=== PATIENT | female | born 1985 | race Caucasian/White ===

== ENCOUNTER 2021-08-28 11:11 | Emergency (ER) | payer OTHER, SELFPAY ==
--- NOTE | 2021-08-28 11:16 | ED.BACK ---
HPI - Back Pain/Injury General Chief Complaint: Back Pain/Injury Stated Complaint: Low Back Pain Time Seen by Provider: 08/28/21 11:16 Source: patient, family and RN notes reviewed History of Present Illness HPI Narrative: Patient is a 36-year-old female who presents the urgent care with her significant other with complaints of left-sided low back pain that radiates to the left buttocks. Patient states she does have a history of sciatica and this feels very similar. Patient states that she did call her doctor and has a follow-up appointment on Wednesday for the pain. Patient also reports of some decreased urinary output and frequency of urination. Patient states she has a history of kidney stones and this does not feel similar to that pain . Patient states she has a 2-year-old that she picks up consistently and believes that she may have pulled something in her back . Patient denies any dysuria, abdominal pain, nausea, vomiting, fever. States that she has been taking cranberry and using ibuprofen/ice and icy hot for the pain. No other acute complaints. No acute distress noted. Patient aware of the plan of care. Some parts of this dictation were generated by voice recognition software and may contain typographical and/or grammatical inaccuracies. Related Data Allergies Allergy/AdvReac Type Severity Reaction Status Date / Time No Known Allergies Allergy Verified 08/28/21 11:30 Review of Systems Review of Systems: CONSTITUTIONAL: Denies fever, chills, or sweats. EYES: Denies visual changes, redness, or discharge. ENT: Denies rhinorrhea, congestion, sore throat, or otalgia. CARDIOVASCULAR: Denies chest pain, palpitations, or edema. RESPIRATORY: Denies cough or dyspnea. GASTROINTESTINAL: Denies abdominal pain, nausea, vomiting, or diarrhea. GENITOURINARY: Reports of decreased urinary output and increased frequency SKIN: Denies rash or itching. MUSCULOSKELETAL: Reports of left low back/flank pain rating to the left buttocks NEUROLOGIC: Denies headache, numbness, or weakness. All other systems reviewed are negative, except as documented in HPI. PMFSH Comments At the time of my signature, I reviewed and agree with the nursing past medical, surgical, social, and family history. There is no relevant family history pertinent to the patient complaint. Exam Narrative: GENERAL: This is a well-nourished, well-developed patient, in no apparent distress. HEAD: normocephalic, atraumatic. EYES: PERRL. Sclera clear/white. Vision is grossly intact. EARS: External ears normal NOSE: External nose normal with no obvious nasal discharge, nares without redness, no rhinorrhea. THROAT: Mucous membranes moist NECK: Neck supple CARDIOVASCULAR: Regular rate and rhythm without murmurs, gallops, or rubs. RESPIRATORY: Clear to auscultation. Breath sounds equal bilaterally. No wheezes, rales, or rhonchi. SKIN: warm, intact with no suspicious lesions or rash, good texture and turgor. NEURO: awake, alert, and oriented to person, place and time. There were no obvious focal neurologic abnormalities. EXTREMITIES: No clubbing, cyanosis, or edema. BACK: Moderate left piriformis tenderness. Positive left SLE. Negative bilateral CVA tenderness Course Vital Signs Vital signs: Vital Signs Temperature 99.9 F H 08/28/21 11:33 Pulse Rate 108 H 08/28/21 11:33 Respiratory Rate 20 08/28/21 11:33 Blood Pressure 147/73 H 08/28/21 11:33 Pulse Oximetry 100 08/28/21 11:33 Temperature 99.9 F H 08/28/21 11:33 Pulse Rate 108 H 08/28/21 11:33 Respiratory Rate 20 08/28/21 11:33 Blood Pressure 147/73 H 08/28/21 11:33 Pulse Oximetry 100 08/28/21 11:33 Reviewed-patient is informed that they may have pre-hypertension or hypertension based on a blood pressure reading in the department. I recommend the patient call the primary care provider listed on their discharge instructions or a physician of their choice this week to arrange follow-up for fur
[2021-08-28 11:33] VITALS: BP 147/73; PULSE 108; RESP 20; TEMP 37.7; O2SAT 100
== END 2021-08-28 12:25 | disposition home or self-care (01) ==
PROVIDERS: Emergency Provider Nurse Practitioner Family; PCP Physician Assistant
DX: M54.32 Sciatica, left side (principal)
CPT/HCPCS: 81003; 99213; G0463

== ENCOUNTER 2024-10-09 12:49 | Emergency (ER) | payer OTHER, SELFPAY ==
[2024-10-09 12:58] VITALS: BP 152/55; PULSE 103; RESP 16; TEMP 36.8; O2SAT 100
--- NOTE | 2024-10-09 14:16 | ED.DENTAL ---
HPI - Dental/Oral General Chief complaint: Dental/Oral Stated complaint: face swollen from tooth Time Seen by Provider: 10/09/24 14:11 Source: patient and RN notes reviewed Mode of arrival: ambulatory Limitations: no limitations History of Present Illness HPI Narrative: Patient presents today complaining of left upper dental pain and facial swelling since yesterday. Patient is currently approximately 6-8 weeks . She has not had her [employer] appointment. No shortness of breath, difficulty swallowing, fever. Reports she is [facility], but not for 1.5 years. Related Data Allergies Allergy/AdvReac Type Severity Reaction Status Date / Time No Known Allergies Allergy Verified 10/09/24 13:25 Review of Systems Review of Systems: CONSTITUTIONAL: Denies body aches, fever, chills, or sweats. EYES: Denies visual changes, redness, or discharge. ENT: Denies rhinorrhea, congestion, sore throat, or otalgia.+ dental pain, facial swelling CARDIOVASCULAR: Denies chest pain, palpitations, or edema. RESPIRATORY: Denies cough or dyspnea. GASTROINTESTINAL: Denies abdominal pain, nausea, vomiting, or diarrhea. GENITOURINARY: Denies dysuria or hematuria. SKIN: Denies rash, itching, or wounds. MUSCULOSKELETAL: Denies back pain, joint pain, or myalgia. NEUROLOGIC: Denies headache, numbness, tingling, or weakness. PSYCH: Denies depression or anxiety. PMFSH Comments At time of signature, I have reviewed and agree with nursing past medical, surgical, social and family history unless otherwise noted. Please see nursing chart for further information. There is no relevant family history pertinent to the presenting complaint Exam Narrative: GENERAL: Well-appearing, well-nourished, and in no acute distress. HEAD: Normocephalic, atraumatic. EYES: EOMI. No redness or drainage. Conjunctivae normal. ENT: Mucous membranes pink and moist. Throat normal. Uvula midline. Significant gross dental decay. Most teeth are brown in color with significant dental caries. No obvious periapical abscesses. Mild left upper facial swelling. No trismus. No sublingual tenderness. NECK: Normal AROM. CHEST: No respiratory distress. EXTREMITIES: Normal range of motion. No edema. SKIN: Warm, dry, no rash. Capillary refill normal. Normal skin turgor. NEURO: No focal deficits. Alert and oriented x3. Gait steady. PSYCH: Normal affect. No signs of depression or anxiety. Course Course Level of Care: Express Care Visit Vital Signs Vital signs: Vital Signs Temperature 98.2 F 10/09/24 12:58 Pulse Rate 103 H 10/09/24 12:58 Respiratory Rate 16 10/09/24 12:58 Blood Pressure 152/55 H 10/09/24 12:58 Pulse Oximetry 100 10/09/24 12:58 Oxygen Delivery Room Air 10/09/24 12:58 Temperature 98.2 F 10/09/24 12:58 Pulse Rate 103 H 10/09/24 12:58 Respiratory Rate 16 10/09/24 12:58 Blood Pressure 152/55 H 10/09/24 12:58 Pulse Oximetry 100 10/09/24 12:58 Oxygen Delivery Room Air 10/09/24 12:58 Reviewed MDM - Dental/Oral MDM Narrative Medical decision making narrative: Patient will be treated with a course of amoxicillin. She has been instructed it is safe for her to take Tylenol. ED precautions given. Differential Diagnosis Differential diagnosis: Likely gingival abscess, dental caries, toothache and dental abscess Critical Care Time Critical Care Time Critical Care Time: No Discharge Plan Discharge Clinical Impression: Dental abscess Patient Disposition: Home, Self-Care Condition: Stable Instructions: Antibiotic Form, Dental Abscess (ED) Additional Instructions: Please take the amoxicillin as prescribed until gone. Take Tylenol for pain if needed. As discussed, please go to the ER immediately if you develop any worsening symptoms such as fever, shortness of breath, difficulty swallowing. Your blood pressure was elevated above 120/80 today at Urgent Care. This puts you above the threshold for follow up. Please schedule a followup visit with your personal physician as soon as possible, for further evaluation and treatment. Even blood pressure exceeding 120/80 may indicate pre-hypertension. Patient Language: Ukrainian Prescriptions: New amoxicillin 875 mg tablet 875 mg PO Q12H 10 Days Qty: 20 0RF No Action ibuprofen 800 mg tablet 800 mg PO TID PRN (Reason: pain) Qty: 60 0RF methylprednisolone [Medrol (Domenico)] 4 mg tablets,dose pack See Rx Instructions .ROUTE .COMPLEX Qty: 21 0RF Rx Instructions: orally per package directions cyclobenzaprine 5 mg tablet 5 mg PO TID PRN (Reason: muscle spasm) Qty: 20 0RF Follow-up/Referrals: Anibal,TASIA Roberts [Primary Care Provider] - Time of Disposition: 14:19
== END 2024-10-09 14:22 | disposition home or self-care (01) ==
PROVIDERS: Emergency Provider Nurse Practitioner; PCP Physician Assistant
DX: K04.7 Periapical abscess without sinus (principal)
CPT/HCPCS: 99203; G0463

== ENCOUNTER 2025-01-10 18:44 | Observation (INO) | payer OTHER, SELFPAY ==
[2025-01-10] VITALS (19 sets, daily range): BP systolic 100–106; BP diastolic 48–50; PULSE 73–96; TEMP 36.6; O2SAT 100; BMI 37.5
--- NOTE | 2025-01-10 18:44 | PC.NURSE ---
Pt arrives to unit with lightheadedness and cramping 8 out of 10 pain, denies vaginal bleeding and leaking of fluid.
--- OUTSIDE RECORDS SUMMARY | 2025-01-10 18:51 | XMS_ITS | Clinical Summary ---
Author Organization [facility] Address [address] [place] [address] Care Team Providers Care Coil Assembler Name Role Phone No, Physician Primary Care Provider Allergies No known active allergies Medications doxylamine-pyri doxine, vit B6, (DICLEGIS) 10-10 mg tablet Take 1 tablet by mouth nightly as needed for nausea for up to 7 days 7 tablet 12/01/2024 Active Active Problems Problem Noted Date Diagnosed Date SIRS (systemic inflammatory response syndrome) 0 11/24/2023 Community acquired pneumonia of right lower lobe of lung 06/23/2020 Assessment & Plan (06/23/2020 5:51 PM CDT): Patient presents with cough, fever and shortness of breath WBC is 14.5, CXR reveals right lung base hazy opacity Follow Covid 19 nasopharyngeal swab Ceftriaxone and azithromycin for pneumonia Current smoker 06/23/2020 Assessment & Plan (06/23/2020 5:54 PM CDT): Patient smokes a pack a day for many years, she says she even continued to smoke during her Counseled regarding harmful effects of smoking on health Offered nicotine patch- but patient refused Microscopic hematuria 06/23/2020 Assessment & Plan (06/23/2020 5:57 PM CDT): UA: 0-5 WBC, Negative for Nitrites and Leukocyte esterase, 11-20 RBCs Will clarify if the patient is on her menses Will follow Hypoxemia Shortness of breath Estimated Date of Delivery Comme nts Yes 05/12/2025 Encounters Date Type Department Care Team Description 12/10/2024 4:41 PM WOOD PROCESSING WORKER - 12/10/2024 7:52 PM WOOD PROCESSING WORKER Emergency [facility] Emergency Department [address] [place] [address] Influenza A (Primary Dx); Chest pain, unspecified type Discharge Disposition: Discharge to home or self care 12/10/2024 2:02 PM WOOD PROCESSING WORKER - 12/10/2024 11:59 PM WOOD PROCESSING WORKER Hospital Encounter [facility] Emergency, Room R Discharge Disposition: Discharge to home or self care 11/30/2024 10:27 PM WOOD PROCESSING WORKER - 12/01/2024 2:23 AM WOOD PROCESSING WORKER Emergency [facility] Emergency Department [address] [place] [address] Giuliano Michael MD Influenza A (Primary Dx); Nausea and vomiting, unspecified vomiting type; Asymptomatic bacteriuria Discharge Disposition: Discharge to home or self care 11/14/2024 10:12 AM WOOD PROCESSING WORKER - 11/14/2024 2:10 PM [facility] Emergency [facility] Emergency Department [address] [place] [address] Dominique Rubio MD Vaginal bleeding in , second trimester (Primary Dx); Threatened miscarriage Discharge Disposition: Discharge to home or self care 11/14/2024 9:51 AM WOOD PROCESSING WORKER - 11/14/2024 11:59 PM WOOD PROCESSING WORKER Hospital Encounter [facility] Emergency, Room R Discharge Disposition: Discharge to home or self care from Last 3 Months Immunizations Immunization Administration Dates Next Due Influenza, Quadrivalent, Spl it, Preservative Free, Intramuscular 10/14/2019 MMR 10/14/2019(Deferred: No longer n eeded) Tdap 10/14/2019 Surgical History Surgery Date Site/Laterality Comments CHOLECYSTECTOMY SECTION ABDOMINAL SURGERY Social History Tobacco Use Types Packs/Day Years Used Date Smoking Tobacco: Every Day Cigarettes 1.5 25.1 Started: 11/30/1999 Smokeless Tobacco: Never Tobacco Cessation:Ready to Q uit: Not Asked; Counseling Given: Not Answered Alcohol Use Standard Drinks/Week Comments No 0 (1 standard drink = 0.6 oz pur e alcohol) PHQ-2 Answer Date Recorded PHQ-2 Total Score (If total score is 3 or more points, staff should administer the PHQ-9) 0 06/23/2020 Personal Safety Answer Date Recorded Have you ever been in or are you currently in a harmful physical or emotional relationship or is someone making you feel afraid or unsafe? Denies 12/10/2024 Estimated Date of Delivery Comme nts Yes 05/12/2025 Sex and Gender Information Value Date Recorded Sex Assigned at Not on file Legal Sex Female 9:30 AM WOOD PROCESSING WORKER Gender Identity Not on file Sexual Orientation Not on file Obstetrics History Para Term AB IAB SAB Ectopic Multiple Livin g Live Births 5 3 2 1 1 1 0 3 1 Date Outcome GA Total Labor Labor/2nd/3rd Weight Sex Type Anes PTL Fabiola A1 A5 Name Clin Term Term SAB 2018 35w 2d 0h 01m 0h 01m 1.813 kg (4 lb) M CS-LT ranv Genera l N Livin g 7 9 AILYN MARTINEZ EBDelfino Fung MD Complications:Abruptio Place nta Delivery Location:This [facility] Current Last Filed Vital Signs Vital Sign Reading Time Taken Comments Blood Pressure 105/60 12/10/2024 7:00 PM WOOD PROCESSING WORKER Pulse 58 12/10/2024 7:00 PM WOOD PROCESSING WORKER Temperature 36.9 C (98.4 F) 12/10/2024 2:27 PM WOOD PROCESSING WORKER Respiratory Rate 16 12/10/2024 7:00 PM WOOD PROCESSING WORKER Oxygen Saturation 100% 12/10/2024 7:00 PM WOOD PROCESSING WORKER Inhaled Oxygen Concentration - - Weight 102.5 kg (226 lb) 12/10/2024 2:27 PM WOOD PROCESSING WORKER Height 162.6 cm (5' 4 ) 11/30/2024 9:21 PM WOOD PROCESSING WORKER Body Mass Index 38.79 11/30/2024 9:21 PM WOOD PROCESSING WORKER Plan of Treatment Health Maintenance Due Date Last Done Comments Breast Cancer Screening-Mammogram 1983 Cervical Cancer Screening 1983 Hepatitis C Screening 1983 Varicella Vaccines (1 of 2 - 13+ 2-dose series) 1996 Hepatitis B Screening 2001 Regular Well Visit/Exam 18-64 2001 Pneumococcal vaccine <65 (1 of 2 - PCV) 2002 Depression Screening 06/23/2021 06/23/2020 Covid-19 Vaccine (3 - 2023-2 5 season) 2024 05/24/2021, 05/03/2021 Influenza Vaccine (#1) 2024 , 10/14/2019, 09/02/2015 DTaP/Tdap/Td Vaccine (2 - Td or Tdap) 10/14/2029 10/14/2019 HPV Vaccines Aged Out No longer eligi ble based on patient's age to complete this topic Procedures Procedure Name Priority Date/Time Associated Diagnosis Comments XR CHEST 1 VIEW ED 12/10/2024 6:32 PM WOOD PROCESSING WORKER TROPONIN T HIGH-SENSITIVITY 2-HOUR Timed 12/10/2024 4:39 PM WOOD PROCESSING WORKER INFLUENZA A/B, RSV, AND COVID-19 PCR STAT 12/10/2024 4:39 PM WOOD PROCESSING WORKER EGFR STAT 12/10/2024 2:31 PM WOOD PROCESSING WORKER DIFFERENTIAL AUTO STAT 12/10/2024 2:3 1 PM WOOD PROCESSING WORKER TROPONIN T HIGH-SENSITIVITY SERIES (BASELINE, 2HR, 4HR, 6HR) STAT 12/10/2024 2:31 PM WOOD PROCESSING WORKER COMPREHENSIVE METABOLIC PANEL STAT 12/10/2024 2:31 PM WOOD PROCESSING WORKER CBC WITH AUTO DIFFERENTIAL STAT 12/10/2024 2:31 PM WOOD PROCESSING WORKER ECG 12-LEAD STAT 12/10/2024 2:28 PM WOOD PROCESSING WORKER URINALYSIS, MICROSCOPIC ONLY Routine 12/01/2024 1:46 AM WOOD PROCESSING WORKER TROPONIN T HIGH-SENSITIVITY 4-HR Timed 12/01/2024 1:46 AM WOOD PROCESSING WORKER URINALYSIS AND REFLEX TO MICROSCOPIC AND CULTURE Routine 12/01/2024 1:46 AM WOOD PROCESSING WORKER INFLUENZA A/B, RSV, AND COVID-19 PCR STAT 11/30/2024 10:01 PM WOOD PROCESSING WORKER BLOOD CULTURE Routine 11/30/2024 10:01 PM WOOD PROCESSING WORKER EGFR STAT 11/30/2024 9:53 PM WOOD PROCESSING WORKER DIFFERENTIAL AUTO STAT 11/30/2024 9:5 3 PM WOOD PROCESSING WORKER SEPSIS LACTATE WITH REFLEX Routine 11/30/2024 9:53 PM WOOD PROCESSING WORKER TROPONIN T HIGH-SENSITIVITY SERIES (BASELINE, 2HR, 4HR, 6HR) STAT 11/30/2024 9:53 PM WOOD PROCESSING WORKER COMPREHENSIVE METABOLIC PANEL STAT 11/30/2024 9:53 PM WOOD PROCESSING WORKER CBC WITH AUTO DIFFERENTIAL STAT 11/30/2024 9:53 PM WOOD PROCESSING WORKER BLOOD CULTURE Routine 11/30/2024 9:53 PM WOOD PROCESSING WORKER ECG 12-LEAD STAT 11/30/2024 9:38 PM WOOD PROCESSING WORKER URINALYSIS, MICROSCOPIC ONLY STAT 11/14/2024 1:06 PM WOOD PROCESSING WORKER URINE CULTURE STAT 11/14/2024 1:06 PM WOOD PROCESSING WORKER URINALYSIS AND REFLEX TO MICROSCOPIC AND CULTURE STAT 11/14/2024 1:06 PM WOOD PROCESSING WORKER US OB 14 WEEKS OR OVER ED 12:35 PM WOOD PROCESSING WORKER EGFR STAT 11/14/2024 10:18 AM WOOD PROCESSING WORKER DIFFERENTIAL AUTO STAT 11/14/2024 10: 18 AM WOOD PROCESSING WORKER ANTIBODY SCREEN STAT 11/14/2024 10:18 AM WOOD PROCESSING WORKER ABO/RH STAT 11/14/2024 10:18 AM WOOD PROCESSING WORKER COMPREHENSIVE METABOLIC PANEL STAT 11/14/2024 10:18 AM WOOD PROCESSING WORKER TYPE AND SCREEN STAT 11/14/2024 10:18 AM WOOD PROCESSING WORKER CBC WITH AUTO DIFFERENTIAL STAT 11/14/2024 10:18 AM WOOD PROCESSING WORKER HCG, BLOOD, QUANTITATIVE STAT 11/14/2024 10:18 AM WOOD PROCESSING WORKER from Last 3 Months Results * XR Chest 1 Vw Portable (12/10/2024 6:32 PM WOOD PROCESSING WORKER) Anatomical Region Laterality Modality Body, Chest N/A Computed Radiogr aphy 12/10/2024 7:02 PM WOOD PROCESSING WORKER Narrative 12/10/2024 7:02 PM WOOD PROCESSING WORKER EXAM DESCRIPTION: XR CHEST 1 VIEW REASON FOR STUDY: cough All Over Chest Pain that started Today. Pt has Flu A. Pt is 18 Weeks . Pt shielded for Image. Smoker TECHNIQUE: Frontal radiographic view(s) of the chest. COMPARISON: 11/28/2023 FINDINGS: LUNGS: Mild bibasilar atelectasis. No focal pulmonary parenchymal consolidation, pleural effusion, or pneumothorax. HEART/MEDIASTINUM: Cardiac silhouette normal in size. Mediastinal and hilar contours appear normal. LINES/TUBES: None. BONES: No acute osseous abnormality. IMPRESSION: No acute cardiopulmonary abnormality. THIS IS AN ELECTRONICALLY VERIFIED FINAL REPORT 12/10/2024 7:02 PM - Electronically signed by Bandar Quevedo M.D. AT: AT Report ID: [id number] Reading Location: [id number] Procedure Note Bandar Quevedo MD - 12/10/2024 EXAM DESCRIPTION: XR CHEST 1 VIEW REASON FOR STUDY: cough All Over Chest Pain that started Today. Pt has Flu A. Pt is 18 Weeks . Pt shielded for Image. Smoker TECHNIQUE: Frontal radiographic view(s) of the chest. COMPARISON: 11/28/2023 FINDINGS: LUNGS: Mild bibasilar atelectasis. No focal pulmonary parenchymal consolidation, pleural effusion, or pneumothorax. HEART/MEDIASTINUM: Cardiac silhouette normal in size. Mediastinal andhilar contours appear normal. LINES/TUBES: None. BONES: No acute osseous abnormality. IMPRESSION: No acute cardiopulmonary abnormality. THIS IS AN ELECTRONICALLY VERIFIED FINAL REPORT 12/10/2024 7:02 PM - Electronically signed by Bandar Quevedo M.D. AT: AT Report ID: [id number] Reading Location: [id number] us Natalie DOZIER IMG XR PROCEDURES Final R esult * Troponin T high-sensitivity 2-hour (12/10/2024 4:39 PM WOOD PROCESSING WORKER) Trop T hs <6 <=14 ng/L Comment: Interpretive Data For further hscTnT resources including the diagnostic algorithm and an aid in interpretation, copy and paste this link: https://nrl.testcatalog.org/show/hsTrop Current Interpretive Data last revised 2020. Trop T hs delta 0 ng/L [facility] ([place]) Trop T hs interp Insignificant [facility] ([place]) Blood 12/10/2024 4:39 PM WOOD PROCESSING WORKER 12/10/2024 4:43 PM WOOD PROCESSING WORKER Abiodun Jaime MD LAB BLOOD ORDERABLES Final R esult [facility] ([place] [address] [facility] Department [place] [address] * (ABNORMAL) Influenza A/B, RSV, and COVID-19 PCR Nasopharyngeal (12/10/2024 4:39 PM WOOD PROCESSING WORKER) COVID-19 RNA Negative Negative Influenza A RNA Positive(A) Negative [facility] ([place]) Influenza B RNA Negative Negative [facility]) RSV RNA Negative Negative [facility] ([place]) Comment: Interpretive data: Testing performed by [facility]. This test is performed using the Plugaround Xpert Xpress CoV-2/Flu/RSV plus assay. This is a multiplex, real- time reverse transcriptase PCR assay intended for the qualitative detection of nucleic acid from SARS-CoV-2, influenza A, influenza B, and respiratory syncytial virus. This assay has been cleared by the [place] Food and Drug administration. The performance characteristics have been verified by the [facility]. Results must be considered in the clinical context, and a negative result does not rule out infection. Interpretive Data last revised 2023 Nasopharyngeal 12/10/2024 4: 39 PM WOOD PROCESSING WORKER 12/10/2024 4:43 PM WOOD PROCESSING WORKER Narrative [facility] ([place]) - 12/10/2024 5:23 PM WOOD PROCESSING WORKER Is the Patient experiencing symptoms consistent with COVID?->Unknown Suresh Eastman NP LAB MICROBIOLOGY - GENERAL ORDERABLES Final Result Performing Organization Address [facility] Co de Phone Number [facility] ([place]) [address] [place] [id number] * Troponin T high-sensitivity series (baseline, 2hr, 4hr, 6hr) (12/10/2024 2:31 PM WOOD PROCESSING WORKER) Pathologist [facility] Trop T hs <6 <=14 ng/L Comment: Interpretive Data For further hscTnT resources including the diagnostic algorithm and an aid in interpretation, copy and paste this link: https://nrl.testcatalog.org/show/hsTrop Current Interpretive Data last revised 2020. Blood 12/10/2024 2:31 PM WOOD PROCESSING WORKER 12/10/2024 2:33 PM WOOD PROCESSING WORKER Abiodun Jaime MD LAB BLOOD ORDERABLES Final R esult Performing Organization Address City/[facility]/ZIP Co de Phone Number [facility] ([place]) [address] [place] [phone] * eGFR (12/10/2024 2:31 PM WOOD PROCESSING WORKER) Pathologist [facility] eGFR >90 >=60 mL/min/1. 73 m2 Comment: Interpretive Data Reference Interval Normal >/= 90 mL/min/1.73m2 Mildly decreased* 60 - 89 mL/min/1.73m2 Mildly to moderately decreased 45 - 59 mL/min/1.73m2 Moderately to severely decreased 30 - 44 mL/min/1.73m2 Severely decreased 15 - 29 mL/min/1.73m2 Kidney Failure < 15 mL/min/1.73m2 *Relative to young adult level Estimated glomerular filtration rate is determined by the 2020 CKD-EPI equation recommended by the National Kidney Foundation (A Unifying Approach to GFR Estimation: Recommendations of the NKF-ASK Task Force on Reassessing the Inclusion of Race in Diagnosing Kidney Disease, JASN 2020). The CKD-EPI equation should not be used for patients with unstable renal function and has not been validated in children and those over 70. Current interpretive data was last reviewed 2021. Blood 12/10/2024 2:31 PM WOOD PROCESSING WORKER 12/10/2024 2:33 PM WOOD PROCESSING WORKER Abiodun Jaime MD LAB BLOOD ORDERABLES Final R esult [facility] ([place]) [address] [facility] Department [place] [address] * (ABNORMAL) Differential, auto (12/10/2024 2:31 PM WOOD PROCESSING WORKER) Neutrophil abs 12.9(H) 1.5 - 6.5 K/cumm Imm gran abs 0.1 0.0 - 0.1 K/cumm [facility] ([place]) Lymphocyte abs 2.9 0.8 - 3.3 K/cumm [facility] ([place]) Monocyte abs 0.6 0.2 - 0.8 K/cumm [facility] ([place]) Eosinophil abs 0.2 0.0 - 0.5 K/cumm [facility] ([place]) Basophil abs 0.1 0.0 - 0.1 K/cumm [facility] ([place]) Neutrophil pct 77.0 % [facility] ([place]) Comment: Interpretive Data Percent cell count reference ranges are not reported, since discordance with absolute values may lead to misinterpretation of CBC data. Current Interpretive Data was last revised on 2018. Imm gran pct 0.8 % [facility] ([place]) Comment: Interpretive Data Percent cell count reference ranges are not reported, since discordance with absolute values may lead to misinterpretation of CBC data. Current Interpretive Data was last revised on 2018. Lymphocyte pct 17.0 % [facility] ([place]) Comment: Interpretive Data Percent cell count reference ranges are not reported, since discordance with absolute values may lead to misinterpretation of CBC data. Current Interpretive Data was last revised on 2018. Monocyte pct 3.5 % [facility] ([place]) Comment: Interpretive Data Percent cell count reference ranges are not reported, since discordance with absolute values may lead to misinterpretation of CBC data. Current Interpretive Data was last revised on 2018. Eosinophil pct 1.3 % [facility] ([place]) Comment: Interpretive Data Percent cell count reference ranges are not reported, since discordance with absolute values may lead to misinterpretation of CBC data. Current Interpretive Data was last revised on 2018. Basophil pct 0.4 % [facility] ([place]) Comment: Interpretive Data Percent cell count reference ranges are not reported, since discordance with absolute values may lead to misinterpretation of CBC data. Current Interpretive Data was last revised on 2018. Blood 12/10/2024 2:31 PM WOOD PROCESSING WORKER 12/10/2024 2:33 PM WOOD PROCESSING WORKER us Abiodun Jaime MD LAB BLOOD ORDERABLES Final R esult [facility] ([place]) [address] [facility] Department [place] [address] * (ABNORMAL) CBC with auto differential (12/10/2024 2:31 PM WOOD PROCESSING WORKER) WBC 16.7(H) 3.8 - 9.9 K/cumm Hgb 10.7(L) 11.9 - 15.5 g/dL [facility] ([place]) Hct 32.2(L) 35.6 - 45.5 % [facility] ([place]) Plt 409(H) 150 - 400 K/cumm [facility] ([place]) MPV 9.6 9.1 - 12.3 fL [facility] RBC 3.57(L) 3.90 - 5.20 M/cumm [facility] ([place]) MCV 90.2 81.3 - 96.4 fL [facility] ([place]) MCH 30.0 27.1 - 33.3 pg [facility] ([place]) MCHC 33.2 32.3 - 35.7 g/dL [facility] ([place]) RDW CV 12.8 11.1 - 14.9 % [facility] ([place]) RDW SD 42.4 35.7 - 48.1 fL [facility] NRBC abs 0.00 0.00 - 0.01 K/cumm [facility] Blood Venous blood specimen / Unknown 12/10/2024 2:31 PM WOOD PROCESSING WORKER 12/10/2024 2:33 PM WOOD PROCESSING WORKER Abiodun Jaime MD LAB BLOOD ORDERABLES Final R esult [facility] ([place]) 1 [facility] Department of Laboratories [place] [id number] * (ABNORMAL) Comprehensive metabolic panel (12/10/2024 2:31 PM WOOD PROCESSING WORKER) Sodium 135 135 - 145 mmol/L Potassium, pl 3.3 3.3 - 4.9 mmol/L [facility] ([place]) Chloride 104 97 - 110 mmol/L [facility] CO2 18(L) 22 - 32 mmol/L [facility] Anion gap 13 2 - 15 mmol/L [facility] BUN 4(L) 6 - 25 mg/dL [facility] Creatinine 0.64 0.60 - 1.10 mg/dL [facility] ([place]) Glucose 118 70 - 199 mg/dL [facility] Comment: Interpretive Data Fasting glucose >/= 126 mg/dl is diagnostic for diabetes. Fasting is defined as no caloric intake for at least 8 hours. Fasting glucose between 100 mg/dl to 125 mg/dl is diagnostic of prediabetes. In a patient with classic symptoms of hyperglycemia or hyperglycemic crisis, a random glucose >/= 200 mg/dl is diagnostic for diabetes. In the absence of unequivocal hyperglycemia, results should be confirmed by repeat testing. The classification and Diagnosis of Diabetes Diabetes Care 2021; 46: S19-S40. Current interpretive data was last revised 2022. Calcium 9.7 8.5 - 10.3 mg/dL [facility] ([place]) Bilirubin, total <0.2 0.1 - 1.2 mg/dL [facility] ([place]) Protein, pl 6.8 6.5 - 8.5 g/dL [facility] ([place]) Albumin 3.6 3.5 - 5.0 g/dL [facility] ([place]) Alk phos 167(H) 40 - 130 Units/L [facility] ([place]) ALT 18 7 - 45 Units/L [facility] ([place]) AST 18 10 - 45 Units/L [facility] ([place]) Blood 12/10/2024 2:31 PM WOOD PROCESSING WORKER 12/10/2024 2:33 PM WOOD PROCESSING WORKER Abiodun Jaime MD LAB BLOOD ORDERABLES Final R esult [facility] ([place]) [address] [facility] Department [place] [address] * ECG 12 lead (12/10/2024 2:28 PM WOOD PROCESSING WORKER) 12/10/2024 2:28 PM WOOD PROCESSING WORKER Narrative [facility] - 12/11/2024 6:32 AM WOOD PROCESSING WORKER Vent Rate: 99 bpm RR Interval: 606 msec FL Interval: 159 msec QRS Duration: 62 msec QT Interval: 347 msec QTC Interval: 403 msec P-R-T [place]: 50 - 54 - 50 degrees IMPRESSION: Baseline artifact, probable SINUS RHYTHM LEFT ATRIAL ENLARGEMENT [-0.15mV P WAVE IN V1/V2] LOW QRS VOLTAGE IN PRECORDIAL LEADS [QRS DEFLECTION < 1.0 mV IN CHEST LEADS] ABNORMAL ECG NO CHANGE FROM PREVIOUS TRACING NOTED Electronically Signed By: David Iglesias MD us Abiodun Jaime MD ECG ORDERABLES Final Result [facility] * Troponin T high-sensitivity 4-hour (12/01/2024 1:46 AM WOOD PROCESSING WORKER) Trop T hs 7 <=14 ng/L Comment: Interpretive Data For further hscTnT resources including the diagnostic algorithm and an aid in interpretation, copy and paste this link: https://nrl.testcatalog.org/show/hsTrop Current Interpretive Data last revised 2020. Trop T hs delta 1 ng/L [facility] ([place]) Trop T hs interp Insignificant [facility] ([place]) Blood 12/01/2024 1:46 AM WOOD PROCESSING WORKER 12/01/2024 1:52 AM WOOD PROCESSING WORKER us Giuliano Michael MD LAB BLOOD ORDERABLES Final Re sult Performing Organization Address City/[facility]/ZIP Co de Phone Number [facility] ([place]) [address] [facility] Department [place] [address] * (ABNORMAL) Urinalysis reflex to microscopic and culture Urine (12/01/2024 1:46 AM WOOD PROCESSING WORKER) Color, ur Yellow Yellow Clarity, ur Clear Clear [facility] ([place]) Specific gravity, ur 1.007 1.003 - 1.030 [facility] ([place]) pH, urine 5.5 [facility] ([place]) Comment: Interpretive Data U rine pH is affected by diet, medications, systemic acid-base disturbances, and renal tubular function. pH may affect urinary stone formation. For example, urine pH below 6.0 may help reduce the tendency for calcium phosphate stones and pH greater than 6.0 may reduce the tendency for uric acid stone formation. Source: [facility] Current Interpretive Data was last revised on 2017 Protein, ur ql Negative Negative [facility] ([place]) Glucose, ur ql Negative Negative [facility] ([place]) Ketones, ur Negative Negative [facility] ([place]) Bilirubin, ur Negative Negative [facility] ([place]) Blood, ur 1+(A) Negative [facility] ([place]) Urobilinogen, ur <2.0 <2.0 mg/dL [facility] ([place]) Nitrite, ur Negative Negative [facility] ([place]) Leukocyte esterase, ur Negative Negative [facility] ([place]) UA reflex comment Reflex to microscopic UA will be performed. [facility] ([place]) Urine 12/01/2024 1:46 AM WOOD PROCESSING WORKER 12/01/2024 1:52 AM WOOD PROCESSING WORKER Narrative [facility] ([place]) - 12/01/2024 1:56 AM WOOD PROCESSING WORKER If patient unable to urinate, straight cath us Giuliano Michael MD LAB MICROBIOLOGY - GENERAL OR DERABLES Final Result Performing Organization Address City/[facility]/ZIP Co de Phone Number [facility] ([place]) 1 [facility] [place] [address] * (ABNORMAL) Urinalysis, microscopic only (12/01/2024 1:46 AM WOOD PROCESSING WORKER) WBC, ur 0-5 0 - 5 /HPF RBC, ur 0-2 0 - 2 /HPF [facility] ([place]) Bacteria, ur 1+(A) [facility] ([place]) Mucous, ur Present(A) [facility] ([place]) Culture Reflex Comment Reflex conditions for urine culture (WBC >10) not met. [facility] ([place]) Urine 12/01/2024 1:46 AM WOOD PROCESSING WORKER 12/01/2024 1:52 AM WOOD PROCESSING WORKER us Natalie DOZIER LAB URINE ORDERABLES Judit l Result [facility] ([place]) 1 [facility] [place] [address] * (ABNORMAL) Influenza A/B, RSV, and COVID-19 PCR Nasopharyngeal (11/30/2024 10:01 PM WOOD PROCESSING WORKER) COVID-19 RNA Negative Negative Influenza A RNA Positive(A) Negative [facility] ([place]) Influenza B RNA Negative Negative [facility] ([place]) RSV RNA Negative Negative [facility] ([place]) Comment: Interpretive data: Testing performed by [facility]. This test is performed using the Plugaround Xpert Xpress CoV-2/Flu/RSV plus assay. This is a multiplex, real- time reverse transcriptase PCR assay intended for the qualitative detection of nucleic acid from SARS-CoV-2, influenza A, influenza B, and respiratory syncytial virus. This assay has been cleared by the [place] Food and Drug administration. The performance characteristics have been verified by the [facility]. Results must be considered in the clinical context, and a negative result does not rule out infection. Interpretive Data last revised 2023 Nasopharyngeal 11/30/2024 10 :01 PM WOOD PROCESSING WORKER 11/30/2024 10:12 PM WOOD PROCESSING WORKER Narrative [facility] ([place]) - 11/30/2024 11:00 PM WOOD PROCESSING WORKER Is the Patient experiencing symptoms consistent with COVID?->Yes Giuliano Michael MD LAB MICROBIOLOGY - GENERAL OR DERABLES Final Result [facility] ([place]) 1 [facility] Department [place] [address] * Blood culture Blood (11/30/2024 10:01 PM WOOD PROCESSING WORKER) Report Final Report: No growth Comment:Testing performed by : [facility], 1 [place]., [address] Blood 11/30/2024 10:0 1 PM WOOD PROCESSING WORKER 12/01/2024 12:26 AM WOOD PROCESSING WORKER Narrative [facility] ([place]) - 12/06/2024 7:00 AM WOOD PROCESSING WORKER From a different site than #1. Collection->Peripheral 1. Blood cultures are incubated for 4 days on a continuously monitored blood culture system. The first report of a negative culture is issued within 24 hours of receipt of the specimen in the laboratory. 2. Positive culture results are reported as soon as they are detected. 3. The most important factor for detection of microbes in the setting of bloodstream infection is the volume of blood submitted for culture. Failure to collect an optimal blood volume can result in false negative blood cultures. 4. For pediatric patients, the recommended blood volume to collect follows a weight based strategy. See the electronic test catalog for collection instructions. 5. For positive blood cultures, a rapid molecular test may be performed for organism identification using the jon ePlex blood culture identification panel for gram positive (BCID-GP) and gram negative (BCID-GN) organisms. This nucleic acid amplification test detects microbial DNA in positive blood culture broth. This assay has been cleared by the [place] Food and Drug Administration and its performance characteristics have been verified by the [facility]biology [facility]. For questions about this culture, contact the Microbiology Laboratory at [phone]. Interpretive data was last revised on 24. us Giuliano Michael MD LAB MICROBIOLOGY - GENERAL OR DERABLES Final Result Performing Organization Address City/[facility]/ZIP Co de Phone Number AYSHA HOOPER [place]) [address] [place] [address] [place] [address] * Troponin T high-sensitivity series (baseline, 2hr, 4hr, 6hr) (11/30/2024 9:53 PM WOOD PROCESSING WORKER) Pathologist [facility] Trop T hs <6 <=14 ng/L Comment: Interpretive Data For further hscTnT resources including the diagnostic algorithm and an aid in interpretation, copy and paste this link: https://nrl.testcatalog.org/show/hsTrop Current Interpretive Data last revised 2020. Blood 11/30/2024 9:53 PM WOOD PROCESSING WORKER 11/30/2024 10:12 PM WOOD PROCESSING WORKER us Giuliano Michael MD LAB BLOOD ORDERABLES Final Re sult [facility] HOOPER [place]) 1 [facility] [place] [address] * Sepsis Lactate w/ Reflex (11/30/2024 9:53 PM WOOD PROCESSING WORKER) Sepsis Lactate 1.4 0.7 - 2.0 mmol/L Blood 11/30/2024 9:53 PM WOOD PROCESSING WORKER 11/30/2024 10:12 PM WOOD PROCESSING WORKER Giuliano Michael MD LAB BLOOD ORDERABLES Final Re sult Performing Organization Address City/[facility]/ZIP Co de Phone Number AYSHA HOOPER ([place]) 1 [facility] [place] [address] * eGFR (11/30/2024 9:53 PM WOOD PROCESSING WORKER) eGFR >90 >=60 mL/min/1. 73 m2 Comment: Interpretive Data Reference Interval Normal >/= 90 mL/min/1.73m2 Mildly decreased* 60 - 89 mL/min/1.73m2 Mildly to moderately decreased 45 - 59 mL/min/1.73m2 Moderately to severely decreased 30 - 44 mL/min/1.73m2 Severely decreased 15 - 29 mL/min/1.73m2 Kidney Failure < 15 mL/min/1.73m2 *Relative to young adult level Estimated glomerular filtration rate is determined by the 2020 CKD-EPI equation recommended by the National Kidney Foundation (A Unifying Approach to GFR Estimation: Recommendations of the NKF-ASK Task Force on Reassessing the Inclusion of Race in Diagnosing Kidney Disease, JASN 2020). The CKD-EPI equation should not be used for patients with unstable renal function and has not been validated in children and those over 70. Current interpretive data was last reviewed 2021. Blood 11/30/2024 9:53 PM WOOD PROCESSING WORKER 11/30/2024 10:12 PM WOOD PROCESSING WORKER us Giuliano Michael MD LAB BLOOD ORDERABLES Final Re sult AYSHA HOOPER ([place]) 1 [facility] [place] [address] * (ABNORMAL) Differential, auto (11/30/2024 9:53 PM WOOD PROCESSING WORKER) Neutrophil abs 12.1(H) 1.5 - 6.5 K/cumm Imm gran abs 0.1 0.0 - 0.1 K/cumm [facility] ([place]) Lymphocyte abs 1.3 0.8 - 3.3 K/cumm [facility] ([place]) Monocyte abs 0.7 0.2 - 0.8 K/cumm [facility] ([place]) Eosinophil abs 0.1 0.0 - 0.5 K/cumm [facility] ([place]) Basophil abs 0.1 0.0 - 0.1 K/cumm [facility] ([place]) Neutrophil pct 84.2 % [facility] ([place]) Comment: Interpretive Data Percent cell count reference ranges are not reported, since discordance with absolute values may lead to misinterpretation of CBC data. Current Interpretive Data was last revised on 2018. Imm gran pct 0.3 % [facility] ([place]) Comment: Interpretive Data Percent cell count reference ranges are not reported, since discordance with absolute values may lead to misinterpretation of CBC data. Current Interpretive Data was last revised on 2018. Lymphocyte pct 9.2 % [facility] ([place]) Comment: Interpretive Data Percent cell count reference ranges are not reported, since discordance with absolute values may lead to misinterpretation of CBC data. Current Interpretive Data was last revised on 2018. Monocyte pct 4.8 % [facility] ([place]) Comment: Interpretive Data Percent cell count reference ranges are not reported, since discordance with absolute values may lead to misinterpretation of CBC data. Current Interpretive Data was last revised on 2018. Eosinophil pct 0.8 % [facility] ([place]) Comment: Interpretive Data Percent cell count reference ranges are not reported, since discordance with absolute values may lead to misinterpretation of CBC data. Current Interpretive Data was last revised on 2018. Basophil pct 0.7 % [facility] ([place]) Comment: Interpretive Data Percent cell count reference ranges are not reported, since discordance with absolute values may lead to misinterpretation of CBC data. Current Interpretive Data was last revised on 2018. Blood 11/30/2024 9:53 PM WOOD PROCESSING WORKER 11/30/2024 10:12 PM WOOD PROCESSING WORKER Giuliano Michael MD LAB BLOOD ORDERABLES Final Re sult [facility] ([place]) 1 [facility] Department [place] [address] * (ABNORMAL) CBC with auto differential (11/30/2024 9:53 PM WOOD PROCESSING WORKER) WBC 14.4(H) 3.8 - 9.9 K/cumm Hgb 12.2 11.9 - 15.5 g/dL [facility] ([place]) Hct 36.4 35.6 - 45.5 % [facility] ([place]) Plt 424(H) 150 - 400 K/cumm [facility] ([place]) MPV 9.5 9.1 - 12.3 fL [facility] ([place]) RBC 4.04 3.90 - 5.20 M/cumm [facility] ([place]) MCV 90.1 81.3 - 96.4 fL [facility] ([place]) MCH 30.2 27.1 - 33.3 pg [facility] ([place]) MCHC 33.5 32.3 - 35.7 g/dL [facility] ([place]) RDW CV 13.2 11.1 - 14.9 % [facility] ([place]) RDW SD 43.8 35.7 - 48.1 fL [facility] ([place]) NRBC abs 0.00 0.00 - 0.01 K/cumm [facility] ([place]) Blood Venous blood specimen / Unknown 11/30/2024 9:53 PM WOOD PROCESSING WORKER 11/30/2024 10:12 PM WOOD PROCESSING WORKER us Giuliano Michael MD LAB BLOOD ORDERABLES Final Re sult AYSHA HOOPER ([place]) 1 [facility] Department [place] [address] * Blood culture Blood (11/30/2024 9:53 PM WOOD PROCESSING WORKER) Report Final Report: No growth Comment:Testing performed by : [facility], 1 [facility] [place]., [address] Blood 11/30/2024 9:53 PM WOOD PROCESSING WORKER 12/01/2024 12:26 AM WOOD PROCESSING WORKER Narrative AYSHA HOOPER ([place]) - 12/06/2024 7:00 AM WOOD PROCESSING WORKER Collection->Peripheral 1. Blood cultures are incubated for 4 days on a continuously monitored blood culture system. The first report of a negative culture is issued within 24 hours of receipt of the specimen in the laboratory. 2. Positive culture results are reported as soon as they are detected. 3. The most important factor for detection of microbes in the setting of bloodstream infection is the volume of blood submitted for culture. Failure to collect an optimal blood volume can result in false negative blood cultures. 4. For pediatric patients, the recommended blood volume to collect follows a weight based strategy. See the electronic test catalog for collection instructions. 5. For positive blood cultures, a rapid molecular test may be performed for organism identification using the jon ePlex blood culture identification panel for gram positive (BCID-GP) and gram negative (BCID-GN) organisms. This nucleic acid amplification test detects microbial DNA in positive blood culture broth. This assay has been cleared by the [place] Food and Drug Administration and its performance characteristics have been verified by the [facility]biology [facility]. For questions about this culture, contact the Microbiology Laboratory at [phone]. Interpretive data was last revised on 24. Giuliano Michael MD LAB MICROBIOLOGY - GENERAL OR DERABLES Final Result [facility] ([place]) 1 [facility] Department [place] [address] * (ABNORMAL) Comprehensive metabolic panel (11/30/2024 9:53 PM WOOD PROCESSING WORKER) Sodium 134(L) 135 - 145 mmol/L Potassium, pl 3.7 3.3 - 4.9 mmol/L [facility] ([place]) Chloride 99 97 - 110 mmol/L [facility] ([place]) CO2 22 22 - 32 mmol/L [facility] ([place]) Anion gap 13 2 - 15 mmol/L [facility] ([place]) BUN <3(L) 6 - 25 mg/dL [facility] ([place]) Creatinine 0.64 0.60 - 1.10 mg/dL [facility] ([place]) Glucose 112 70 - 199 mg/dL [facility] ([place]) Comment: Interpretive Data Fasting glucose >/= 126 mg/dl is diagnostic for diabetes. Fasting is defined as no caloric intake for at least 8 hours. Fasting glucose between 100 mg/dl to 125 mg/dl is diagnostic of prediabetes. In a patient with classic symptoms of hyperglycemia or hyperglycemic crisis, a random glucose >/= 200 mg/dl is diagnostic for diabetes. In the absence of unequivocal hyperglycemia, results should be confirmed by repeat testing. The classification and Diagnosis of Diabetes Diabetes Care 202; 46: S19-S40. Current interpretive data was last revised 2022. Calcium 10.0 8.5 - 10.3 mg/dL [facility] ([place]) Bilirubin, total <0.2 0.1 - 1.2 mg/dL [facility] ([place]) Protein, pl 7.7 6.5 - 8.5 g/dL [facility] ([place]) Albumin 3.8 3.5 - 5.0 g/dL [facility] ([place]) Alk phos 216(H) 40 - 130 Units/L [facility] ([place]) ALT 21 7 - 45 Units/L [facility] ([place]) AST 25 10 - 45 Units/L [facility] ([place]) Blood 11/30/2024 9:53 PM WOOD PROCESSING WORKER 11/30/2024 10:12 PM WOOD PROCESSING WORKER us Giuliano Michael MD LAB BLOOD ORDERABLES Final Re sult [facility] ([place]) 1 [facility] Department [place] [address] * ECG 12 lead (11/30/2024 9:38 PM WOOD PROCESSING WORKER) 11/30/2024 9:38 PM WOOD PROCESSING WORKER Narrative [facility] - 12/01/2024 10:02 AM WOOD PROCESSING WORKER Vent Rate: 114 bpm RR Interval: 524 msec FL Interval: 149 msec QRS Duration: 76 msec QT Interval: 327 msec QTC Interval: 395 msec P-R-T [place]: 44 - 56 - 43 degrees IMPRESSION: SINUS TACHYCARDIA ABNORMAL RHYTHM ECG NO CHANGE FROM PREVIOUS TRACING NOTED Electronically Signed By: David Iglesias MD us Giuliano Michael MD ECG ORDERABLES Final Result [facility] * (ABNORMAL) Urinalysis reflex to microscopic and culture Urine (11/14/2024 1:06 PM WOOD PROCESSING WORKER) Color, ur Red(A) Yellow Clarity, ur Turbid(A) Clear [facility] ([place]) Specific gravity, ur See Comment 1.003 - 1.030 [facility] ([place]) pH, urine See Comment [facility] ([place]) Comment: Interpretive Data U rine pH is affected by diet, medications, systemic acid-base disturbances, and renal tubular function. pH may affect urinary stone formation. For example, urine pH below 6.0 may help reduce the tendency for calcium phosphate stones and pH greater than 6.0 may reduce the tendency for uric acid stone formation. Source: [facility] Current Interpretive Data was last revised on 2017 Protein, ur ql See Comment Negative [facility] ([place]) Glucose, ur ql See Comment Negative [facility] ([place]) Ketones, ur See Comment Negative [facility] ([place]) Bilirubin, ur See Comment Negative [facility] ([place]) Blood, ur See Comment Negative [facility]SHA Macias [facility] ([place]) Urobilinogen, ur See Comment <2.0 mg/dL [facility] ([place]) Nitrite, ur See Comment Negative [facility] ([place]) Leukocyte esterase, ur See Comment Negative [facility] ([place]) UA reflex comment Reflex conditions for microscopic UA and culture not met. [facility] ([place]) Urine 11/14/2024 1:06 PM WOOD PROCESSING WORKER 11/14/2024 1:11 PM WOOD PROCESSING WORKER us Dominique Rubio MD LAB MICROBIOLOGY - GENERA L ORDERABLES Final Result [facility] ([place]) 1 [facility] Department [place] [address] * (ABNORMAL) Urinalysis, microscopic only (11/14/2024 1:06 PM WOOD PROCESSING WORKER) WBC, ur >50(A) 0 - 5 /HPF RBC, ur >50(A) 0 - 2 /HPF [facility] ([place]) Epithelial cells, squamous, ur 6-10(A) 0 - 5 /HPF [facility] ([place]) Yeast, ur 2+(A) [facility] ([place]) Mucous, ur Present(A) [facility] A ([place]) Culture Reflex Comment Reflex to urine culture will be performed. [facility] ([place]) Urine 11/14/2024 1:06 PM WOOD PROCESSING WORKER 11/14/2024 1:11 PM WOOD PROCESSING WORKER Dominique Rubio MD LAB URINE ORDERABLES Judit l Result Performing Organization Address [facility] Co de Phone Number [facility] ([place]) 1 [facility] [place] [address] * Urine culture Urine (11/14/2024 1:06 PM WOOD PROCESSING WORKER) Report Final Report: Less than 100,000 colonies/mL (clinically insignificant growth based on current clinical standards) Comment:Testing performed by : [facility], 1 [facility] [place]., [address] Organism (CLINICALLY INSIGNIFICANT GROWTH [facility] ([place]) Urine 11/14/2024 1:06 PM WOOD PROCESSING WORKER 11/14/2024 4:31 PM WOOD PROCESSING WORKER Narrative [facility] ([place]) - 11/15/2024 5:29 PM WOOD PROCESSING WORKER Urine culture reflexed based upon urinalysis results. Testing performed by [facility] ([phone]) Dominique Rubio MD LAB MICROBIOLOGY - GENERA L ORDERABLES Final Result Performing Organization Address City/[facility]/ZIP Co de Phone Number [facility] ([place]) 1 [facility] [place] [address] * US Ob 14 Weeks Or Over (11/14/2024 12:35 PM WOOD PROCESSING WORKER) Anatomical Region Laterality Modality Abdomen N/A Ultrasound 11/14/2024 1:12 PM WOOD PROCESSING WORKER Narrative 11/14/2024 1:27 PM WOOD PROCESSING WORKER EXAM DESCRIPTION: US OB 14 WEEKS OR OVER REASON FOR STUDY: vag bleed TECHNIQUE: Limited transabdominal grayscale ultrasound for obstetrical evaluation. COMPARISON: 11/28/2023 FINDINGS: last menstrual period: 08/05/2024 Clinical estimated Due Date: 05/12/2025 number: 1 Presentation: Variable Placenta location: Anterior low-lying Amniotic fluid: Adequate heart rate: 160-169 bpm measurements: Biparietal diameter: 25.0 cm ( 14 weeks 2 days ) Head circumference: 9.49 cm ( 14 weeks 2 days ) Abdominal circumference: 7.34 cm ( 13 weeks 6 days ) Femur length: 1.44 cm ( 14 weeks 2 days ) Ratios: FL/AC: 15.2 (20-24) HC/AC: 1.29 ( 1.14 - 1.31 ) Gestational age by this ultrasound: 14 weeks and 1 day AMBROSE by this ultrasound: 05/14/2025 Cervical length: Poorly visualized but measures approximately 4.2 cm Other: Within the inferior aspect of the placenta there is a ovoid heterogeneous but predominantly hypoechoic structure measuring 2.6 x 2.7 x 2.9 cm. No significant internal color Doppler flow. IMPRESSION: 1. Single live gestation with estimated gestational age of 14 weeks and 1 day. 2. Indeterminate ovoid hypoechoic and hypovascular structure within the inferior aspect of the placenta. Differential considerations include subchorionic hemorrhage, marginal subchorionic hematoma, and placental venous lin. Recommend attention on close interval ultrasound follow-up, preferably with transvaginal images as clinically appropriate. Recommend obstetric consultation if not already performed. 3. Anterior low-lying placenta. THIS IS AN ELECTRONICALLY VERIFIED FINAL REPORT 11/14/2024 1:27 PM - Electronically signed by Wild Oliva M.D. NS: ADAM Report ID: [id number] Reading Location: [id number] Procedure Note Wild Oliva MD - 11/14/2024 EXAM DESCRIPTION: US OB 14 WEEKS OR OVER REASON FOR STUDY: vag bleed TECHNIQUE: Limited transabdominal grayscale ultrasound for obstetrical evaluation. COMPARISON: 11/28/2023 FINDINGS: last menstrual period: 08/05/2024 Clinical estimated Due Date: 05/12/2025 number: 1 Presentation: Variable Placenta location: Anterior low-lying Amniotic fluid: Adequate heart rate: 160-169 bpm measurements: Biparietal diameter: 25.0 cm ( 14 weeks 2 days ) Head circumference: 9.49 cm ( 14 weeks 2 days ) Abdominal circumference: 7.34 cm ( 13 weeks 6 days ) Femur length: 1.44 cm ( 14 weeks 2 days ) Ratios: FL/AC: 15.2 (20-24) HC/AC: 1.29 ( 1.14 - 1.31 ) Gestational age by this ultrasound: 14 weeks and 1 day AMBROSE by this ultrasound: 05/14/2025 Cervical length: Poorly visualized but measures approximately 4.2 cm Other: Within the inferior aspect of the placenta there is a ovoid heterogeneous but predominantly hypoechoic structure measuring 2.6 x 2.7 x2.9 cm. No significant internal color Doppler flow. IMPRESSION: 1. Single live gestation with estimated gestational age of 14 weeks and1 day. 2. Indeterminate ovoid hypoechoic and hypovascular structure within the inferior aspect of the placenta. Differential considerations include subchorionic hemorrhage, marginal subchorionic hematoma, and placentalvenous lin. Recommend attention on close interval ultrasound follow-up,preferably with transvaginal images as clinically appropriate. Recommend obstetric consultation if not already performed. 3. Anterior low-lying placenta. THIS IS AN ELECTRONICALLY VERIFIED FINAL REPORT 11/14/2024 1:27 PM - Electronically signed by Wild Oliva M.D. NS: NS Report ID: [id number] Reading Location: [id number] us Dominique Rubio MD IMG OB US PROCEDURES Judit l Result * eGFR (11/14/2024 10:18 AM WOOD PROCESSING WORKER) eGFR >90 >=60 mL/min/1. 73 m2 Comment: Interpretive Data Reference Interval Normal >/= 90 mL/min/1.73m2 Mildly decreased* 60 - 89 mL/min/1.73m2 Mildly to moderately decreased 45 - 59 mL/min/1.73m2 Moderately to severely decreased 30 - 44 mL/min/1.73m2 Severely decreased 15 - 29 mL/min/1.73m2 Kidney Failure < 15 mL/min/1.73m2 *Relative to young adult level Estimated glomerular filtration rate is determined by the 2020 CKD-EPI equation recommended by the National Kidney Foundation (A Unifying Approach to GFR Estimation: Recommendations of the NKF-ASK Task Force on Reassessing the Inclusion of Race in Diagnosing Kidney Disease, JASN 2020). The CKD-EPI equation should not be used for patients with unstable renal function and has not been validated in children and those over 70. Current interpretive data was last reviewed 2021. Blood 11/14/2024 10:1 8 AM WOOD PROCESSING WORKER 11/14/2024 10:21 AM WOOD PROCESSING WORKER us Dominique Rubio MD LAB BLOOD ORDERABLES Judit l Result [facility] ([place] 1 [facility] Department [place] [address] * (ABNORMAL) Differential, auto (11/14/2024 10:18 AM WOOD PROCESSING WORKER) Pathologist [facility] Neutrophil abs 10.6(H) 1.5 - 6.5 K/cumm Imm gran abs 0.1 0.0 - 0.1 K/cumm [facility] ([place]) Lymphocyte abs 2.4 0.8 - 3.3 K/cumm [facility] ([place]) Monocyte abs 0.5 0.2 - 0.8 K/cumm [facility] ([place]) Eosinophil abs 0.4 0.0 - 0.5 K/cumm [facility] ([place]) Basophil abs 0.1 0.0 - 0.1 K/cumm [facility] ([place]) Neutrophil pct 75.6 % [facility] ([place]) Comment: Interpretive Data Percent cell count reference ranges are not reported, since discordance with absolute values may lead to misinterpretation of CBC data. Current Interpretive Data was last revised on 2018. Imm gran pct 0.4 % [facility] ([place]) Comment: Interpretive Data Percent cell count reference ranges are not reported, since discordance with absolute values may lead to misinterpretation of CBC data. Current Interpretive Data was last revised on 2018. Lymphocyte pct 17.4 % [facility] ([place]) Comment: Interpretive Data Percent cell count reference ranges are not reported, since discordance with absolute values may lead to misinterpretation of CBC data. Current Interpretive Data was last revised on 2018. Monocyte pct 3.6 % [facility] ([place]) Comment: Interpretive Data Percent cell count reference ranges are not reported, since discordance with absolute values may lead to misinterpretation of CBC data. Current Interpretive Data was last revised on 2018. Eosinophil pct 2.5 % [facility] ([place]) Comment: Interpretive Data Percent cell count reference ranges are not reported, since discordance with absolute values may lead to misinterpretation of CBC data. Current Interpretive Data was last revised on 2018. Basophil pct 0.5 % [facility] ([place]) Comment: Interpretive Data Percent cell count reference ranges are not reported, since discordance with absolute values may lead to misinterpretation of CBC data. Current Interpretive Data was last revised on 2018. Blood 11/14/2024 10:1 8 AM WOOD PROCESSING WORKER 11/14/2024 10:22 AM WOOD PROCESSING WORKER us Dominique Rubio MD LAB BLOOD ORDERABLES Judit l Result AYSHA HOOPER ([place]) 1 [facility] Department of Laboratories [place], [place] [id number] * (ABNORMAL) CBC with auto differential (11/14/2024 10:18 AM WOOD PROCESSING WORKER) WBC 14.0(H) 3.8 - 9.9 K/cumm Hgb 12.1 11.9 - 15.5 g/dL AYSHA HOOPER ([place]) Hct 35.4(L) 35.6 - 45.5 % [facility] ([place]) Plt 291 150 - 400 K/cumm [facility] ([place]) MPV 10.4 9.1 - 12.3 fL [facility] ([place]) RBC 3.91 3.90 - 5.20 M/cumm [facility] ([place]) MCV 90.5 81.3 - 96.4 fL [facility] ([place]) MCH 30.9 27.1 - 33.3 pg [facility] ([place]) MCHC 34.2 32.3 - 35.7 g/dL [facility] ([place]) RDW CV 12.6 11.1 - 14.9 % [facility] ([place]) RDW SD 41.4 35.7 - 48.1 fL [facility] ([place]) NRBC abs 0.00 0.00 - 0.01 K/cumm [facility] ([place]) Blood 11/14/2024 10:1 8 AM WOOD PROCESSING WORKER 11/14/2024 10:22 AM WOOD PROCESSING WORKER Dominique Rubio MD LAB BLOOD ORDERABLES Judit l Result AYSHA HOOPER ([place]) 1 [facility] [place] [address] * ABO/Rh (11/14/2024 10:18 AM WOOD PROCESSING WORKER) ABO/Rh A Positive Blood 11/14/2024 10:1 8 AM WOOD PROCESSING WORKER 11/14/2024 10:22 AM WOOD PROCESSING WORKER Narrative [facility] ([place]) - 11/14/2024 11:04 AM WOOD PROCESSING WORKER Has the patient had Daratumumab or Isatuximab in the past 6 months?->Unknown Dominique Rubio MD LAB BLOOD BANK TEST ORDER HECTOR Final Result AYSHA HOOPER ([place]) 1 [facility] [place] [address] * Antibody screen (11/14/2024 10:18 AM WOOD PROCESSING WORKER) [facility] Araceli, indirect, Gel Interpretation Negative ABSC Blood 11/14/2024 10:1 8 AM WOOD PROCESSING WORKER 11/14/2024 10:22 AM WOOD PROCESSING WORKER Narrative [facility] ([place]) - 11/14/2024 11:04 AM WOOD PROCESSING WORKER Has the patient had Daratumumab or Isatuximab in the past 6 months?->Unknown Dominique Rubio MD LAB BLOOD BANK TEST ORDER HCETOR Final Result Performing Organization Address [facility] Co de Phone Number [facility]SHA [facility] ([place]) 1 [facility] [place] [address] * (ABNORMAL) hCG, blood, quantitative (11/14/2024 10:18 AM WOOD PROCESSING WORKER) [facility] hCG, quant 17,019.0( H) 0.0 - 5.0 IUnits/L Comment: Interpretive Data Male: < 5 IU/L Non- premenopausal Female: <5 IU/L The Mathieu hCG Beta Quant assay procedure was used. Results from different manufacturers or methods may not be comparable. Serial testing should be performed using the same method. Interpretive Data was last revised on 2023 Blood 11/14/2024 10:1 8 AM WOOD PROCESSING WORKER 11/14/2024 10:21 AM WOOD PROCESSING WORKER Dominique Rubio MD LAB BLOOD ORDERABLES Judit l Result Performing Organization Address City/[facility]/ZIP Co de Phone Number AYSHA HOOPER (EMA) [address] [facility] [place] [address] * (ABNORMAL) Comprehensive metabolic panel (11/14/2024 10:18 AM WOOD PROCESSING WORKER) [facility] Sodium 137 135 - 145 mmol/L Potassium, pl 3.4 3.3 - 4.9 mmol/L [facility] (EMA) Chloride 106 97 - 110 mmol/L [facility] (EMA) CO2 22 22 - 32 mmol/L [facility] (EMA) Anion gap 10 2 - 15 mmol/L [facility] (EMA) BUN 5(L) 6 - 25 mg/dL [facility] (EMA) Creatinine 0.74 0.60 - 1.10 mg/dL [facility] (EMA) Glucose 123 70 - 199 mg/dL [facility] (EMA) Comment: Interpretive Data Fasting glucose >/= 126 mg/dl is diagnostic for diabetes. Fasting is defined as no caloric intake for at least 8 hours. Fasting glucose between 100 mg/dl to 125 mg/dl is diagnostic of prediabetes. In a patient with classic symptoms of hyperglycemia or hyperglycemic crisis, a random glucose >/= 200 mg/dl is diagnostic for diabetes. In the absence of unequivocal hyperglycemia, results should be confirmed by repeat testing. The classification and Diagnosis of Diabetes Diabetes Care 202; 46: S19-S40. Current interpretive data was last revised 2022. Calcium 9.6 8.5 - 10.3 mg/dL [facility] (EMA) Bilirubin, total 0.2 0.1 - 1.2 mg/dL [facility] (EMA) Protein, pl 6.1(L) 6.5 - 8.5 g/dL [facility] (EMA) Albumin 3.4(L) 3.5 - 5.0 g/dL [facility] (EMA) Alk phos 115 40 - 130 Units/L [facility] (EMA) ALT 18 7 - 45 Units/L [facility] (EMA) AST 17 10 - 45 Units/L [facility] (EMA) Blood 11/14/2024 10:1 8 AM WOOD PROCESSING WORKER 11/14/2024 10:21 AM WOOD PROCESSING WORKER us Dominique Rubio MD LAB BLOOD ORDERABLES Judit devries Result [facility] (EMA) 1 [facility] Department [place] [address] from Last 3 Months Insurance [facility] [id number] [place] [id number] [place] [address] Advance Directives For more information, please contact: [phone] * Full Code (Latest Code Status on File) Date Activated Date Inactivated Comments 11/24/2023 3:19 AM 11/24/2023 8:19 AM * Full Code Date Activated Date Inactivated Comments 06/23/2020 5:44 PM 06/24/2020 3:41 PM * Full Code Date Activated Date Inactivated Comments 06/23/2020 5:44 PM 06/23/2020 5:44 PM * Full Code Date Activated Date Inactivated Comments 10/12/2019 5:20 AM 10/14/2019 11:20 PM * Full Code Date Activated Date Inactivated Comments 10/12/2019 3:59 AM 10/12/2019 5:20 AM Full CPR i n case of cardiopulmonary arrest 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
--- OUTSIDE RECORDS SUMMARY | 2025-01-10 18:51 | XMS_ITS | Clinical Summary ---
Author Organization [facility] Address [address] [place] [address] Phone Care Team Providers Care Battery Container Finishing Hand Name Role Phone Kaveh Barnett Primary Care Provider [phone] Allergies No known active allergies Medications traMADol (ULTRAM) 50 MG Tablet Take 1 Tab by mouth every 6 hours as needed for Pain. 14 Tab 0 01/07/2017 Active HYDROcodone-gabriela taminophen (NORCO) 5-325 MG Tablet Take 1 Tab by mouth every 6 hours as needed for Moderate pain (4-6) or more severe pain if patient requests. 15 Tab 03/03/2018 Active Social History Tobacco Use Types Packs/Day Years Used Date Smoking Tobacco: Every Day Cigarettes 1.5 16 Smokeless Tobacco: Never Alcohol Use Standard Drinks/Week Comments No 0 (1 standard drink = 0.6 oz pur e alcohol) Comments No Sex and Gender Information Value Date Recorded Sex Assigned at Not on file Legal Sex Female 7:42 PM CDT Gender Identity Not on file Sexual Orientation Not on file Last Filed Vital Signs Vital Sign Reading Time Taken Comments Blood Pressure 153/88 03/03/2018 5:18 PM CDT Pulse 108 03/03/2018 5:18 PM CDT Temperature 38.3 C (100.9 F) 03/03/2018 5:18 PM CDT Respiratory Rate 18 03/03/2018 5:18 PM CDT Oxygen Saturation 96% 03/03/2018 5:18 PM CDT Inhaled Oxygen Concentration - - Weight 117.9 kg (260 lb) 03/03/2018 5:18 PM CDT Height 162.6 cm (5' 4 ) 03/03/2018 5:18 PM CDT Body Mass Index 44.63 03/03/2018 5:18 PM CDT Plan of Treatment Health Maintenance Due Date Last Done Comments Hepatitis C Virus (HCV) Screening 1983 Mammogram 1983 Hepatitis B Immunization (1 of 3 - 19+ 3-dose series) 2002 Pap Smear 2004 Cervical Cancer Screening (CCS) 2013 HPV/Cotest 2013 Discussion re Starting/Frequency of Mammograms 2023 Influenza Immunization (#1) 06/18/202410/18, 10/14/2019, 09/02/2015 SARS-COV-2 Immunization ( season) 2024 05/24/2021, 05/03/2021 Respiratory Syncytial Virus (RSV) Immunization (Adult) (1 - 1-dose 75+ series) 2058 DTaP/Tdap/Td Immunization Discontinued 10/14/2019 TdaP Immunization Completed 10/14/2019 Meningococcal Immunization (ACWY) Aged Out No longer eligible based on patient's age to complete this topic Pneumococcal Immunization Combined Aged Out No longer eligible based on patient's age to complete this topic Rotavirus Immunization Aged Out No lo nger eligible based on patient's age to complete this topic Insurance MEDICAID [employer] Care Teams Battery Container Finishing Hand Relationship Specialty Start Date End Date Kaveh Barnett PAC [address] [place] [address] PCP - General Physician Account Manager [id number] 11/25/15
--- OUTSIDE RECORDS SUMMARY | 2025-01-10 18:51 | XMS_ITS | Referral Summary ---
Author Organization [facility] Address [address] [place] [address] Care Team Providers Care Garment Steamer Name Role Phone No, Physician Primary Care Provider [phone] Encounters Date Type Department Care Team Description 12/10/2024 2:02 PM INVENTORY ACCOUNTANT - 12/10/2024 11:59 PM INVENTORY ACCOUNTANT Hospital Encounter [facility] Emergency, Room R Discharge Disposition: Discharge to home or self care 12/10/2024 4:41 PM INVENTORY ACCOUNTANT - 12/10/2024 7:52 PM [facility] Emergency Department [address] [place] [id number] Influenza A (Primary Dx); Chest pain, unspecified type Discharge Disposition: Discharge to home or self care 11/30/2024 10:27 PM INVENTORY ACCOUNTANT - 12/01/2024 2:23 AM [facility] Emergency Department [address] [place] [id number] Giuliano Michael MD Influenza A (Primary Dx); Nausea and vomiting, unspecified vomiting type; Asymptomatic bacteriuria Discharge Disposition: Discharge to home or self care 11/14/2024 9:51 AM INVENTORY ACCOUNTANT - 11/14/2024 11:59 PM INVENTORY ACCOUNTANT Hospital Encounter [facility] BILLING Emergency, Room R Discharge Disposition: Discharge to home or self care 11/14/2024 10:12 AM INVENTORY ACCOUNTANT - 11/14/2024 2:10 PM [facility] Emergency [facility] Emergency Department [address] [place] [address] Dominique Rubio MD Vaginal bleeding in , second trimester (Primary Dx); Threatened miscarriage Discharge Disposition: Discharge to home or self care from Last 3 Months Allergies No known active allergies Medications doxylamine-pyri [...] Date of Delivery Comme nts Yes 05/12/2025 Immunizations Immunization Administration Dates Next Due Influenza, Quadrivalent, Spl it, Preservative Free, Intramuscular 10/14/2019 MMR 10/14/2019(Deferred: No longer n eeded) Tdap 10/14/2019 Social History Tobacco Use Types Packs/Day Years [...] on file Legal Sex Female 9:30 AM INVENTORY ACCOUNTANT Gender Identity Not on file Sexual Orientation Not on file Last Filed Vital Signs Vital Sign Reading Time Taken Comments Blood Pressure 105/60 12/10/2024 7:00 PM INVENTORY ACCOUNTANT Pulse 58 12/10/2024 7:00 PM INVENTORY ACCOUNTANT Temperature 36.9 C (98.4 F) 12/10/2024 2:27 PM INVENTORY ACCOUNTANT Respiratory Rate 16 12/10/2024 7:00 PM INVENTORY ACCOUNTANT Oxygen Saturation 100% 12/10/2024 7:00 PM INVENTORY ACCOUNTANT Inhaled Oxygen Concentration - - Weight 102.5 kg (226 lb) 12/10/2024 2:27 PM INVENTORY ACCOUNTANT Height 162.6 cm (5' 4 ) 11/30/2024 9:21 PM INVENTORY ACCOUNTANT Body Mass Index 38.79 11/30/2024 9:21 PM INVENTORY ACCOUNTANT Plan of Treatment Not on file Procedures Procedure Name Priority Date/Time Associated Diagnosis Comments XR CHEST 1 VIEW ED 12/10/2024 6:32 PM INVENTORY ACCOUNTANT TROPONIN T HIGH-SENSITIVITY 2-HOUR Timed 12/10/2024 4:39 PM INVENTORY ACCOUNTANT INFLUENZA A/B, RSV, AND COVID-19 PCR STAT 12/10/2024 4:39 PM INVENTORY ACCOUNTANT EGFR STAT 12/10/2024 2:31 PM INVENTORY ACCOUNTANT DIFFERENTIAL AUTO STAT 12/10/2024 2:3 1 PM INVENTORY ACCOUNTANT TROPONIN T HIGH-SENSITIVITY SERIES (BASELINE, 2HR, 4HR, 6HR) STAT 12/10/2024 2:31 PM INVENTORY ACCOUNTANT COMPREHENSIVE METABOLIC PANEL STAT 12/10/2024 2:31 PM INVENTORY ACCOUNTANT CBC WITH AUTO DIFFERENTIAL STAT 12/10/2024 2:31 PM INVENTORY ACCOUNTANT ECG 12-LEAD STAT 12/10/2024 2:28 PM INVENTORY ACCOUNTANT URINALYSIS, MICROSCOPIC ONLY Routine 12/01/2024 1:46 AM INVENTORY ACCOUNTANT TROPONIN T HIGH-SENSITIVITY 4-HR Timed 12/01/2024 1:46 AM INVENTORY ACCOUNTANT URINALYSIS AND REFLEX TO MICROSCOPIC AND CULTURE Routine 12/01/2024 1:46 AM INVENTORY ACCOUNTANT INFLUENZA A/B, RSV, AND COVID-19 PCR STAT 11/30/2024 10:01 PM INVENTORY ACCOUNTANT BLOOD CULTURE Routine 11/30/2024 10:01 PM INVENTORY ACCOUNTANT EGFR STAT 11/30/2024 9:53 PM INVENTORY ACCOUNTANT DIFFERENTIAL AUTO STAT 11/30/2024 9:5 3 PM INVENTORY ACCOUNTANT SEPSIS LACTATE WITH REFLEX Routine 11/30/2024 9:53 PM INVENTORY ACCOUNTANT TROPONIN T HIGH-SENSITIVITY SERIES (BASELINE, 2HR, 4HR, 6HR) STAT 11/30/2024 9:53 PM INVENTORY ACCOUNTANT COMPREHENSIVE METABOLIC PANEL STAT 11/30/2024 9:53 PM INVENTORY ACCOUNTANT CBC WITH AUTO DIFFERENTIAL STAT 11/30/2024 9:53 PM INVENTORY ACCOUNTANT BLOOD CULTURE Routine 11/30/2024 9:53 PM INVENTORY ACCOUNTANT ECG 12-LEAD STAT 11/30/2024 9:38 PM INVENTORY ACCOUNTANT URINALYSIS, MICROSCOPIC ONLY STAT 11/14/2024 1:06 PM INVENTORY ACCOUNTANT URINE CULTURE STAT 11/14/2024 1:06 PM INVENTORY ACCOUNTANT URINALYSIS AND REFLEX TO MICROSCOPIC AND CULTURE STAT 11/14/2024 1:06 PM INVENTORY ACCOUNTANT US OB 14 WEEKS OR OVER ED 12:35 PM INVENTORY ACCOUNTANT EGFR STAT 11/14/2024 10:18 AM INVENTORY ACCOUNTANT DIFFERENTIAL AUTO STAT 11/14/2024 10: 18 AM INVENTORY ACCOUNTANT ANTIBODY SCREEN STAT 11/14/2024 10:18 AM INVENTORY ACCOUNTANT ABO/RH STAT 11/14/2024 10:18 AM INVENTORY ACCOUNTANT COMPREHENSIVE METABOLIC PANEL STAT 11/14/2024 10:18 AM INVENTORY ACCOUNTANT TYPE AND SCREEN STAT 11/14/2024 10:18 AM INVENTORY ACCOUNTANT CBC WITH AUTO DIFFERENTIAL STAT 11/14/2024 10:18 AM INVENTORY ACCOUNTANT HCG, BLOOD, QUANTITATIVE STAT 11/14/2024 10:18 AM INVENTORY ACCOUNTANT from Last 3 Months Results * XR Chest 1 Vw Portable (12/10/2024 6:32 PM INVENTORY ACCOUNTANT) Anatomical Region Laterality Modality Body, Chest N/A Computed Radiogr aphy 12/10/2024 7:02 PM INVENTORY ACCOUNTANT Narrative 12/10/2024 7:02 PM INVENTORY ACCOUNTANT EXAM DESCRIPTION: XR CHEST 1 VIEW REASON [...] Bandar Quevedo M.D. AT: AT Report ID: [id number] Reading Location: [id number] Procedure Note Bandar Quevedo MD - 12/10/2024 [...] Bandar Quevedo M.D. AT: AT Report ID: [id number] Reading Location: [id number] us Natalie DOZIER IMG XR PROCEDURES Final R esult * Troponin T high-sensitivity 2-hour (12/10/2024 4:39 PM INVENTORY ACCOUNTANT) Trop T hs <6 <=14 ng/L Comment: Interpretive Data For further hscTnT resources including the diagnostic algorithm and an aid in interpretation, copy and paste this link: https://nrl.testcatalog.org/show/hsTrop Current Interpretive Data last revised 2020. Trop T hs delta 0 ng/L [facility] ([place]) Trop T hs interp Insignificant [facility] ([place]) Blood 12/10/2024 4:39 PM INVENTORY ACCOUNTANT 12/10/2024 4:43 PM INVENTORY ACCOUNTANT us Abiodun Jaime MD LAB BLOOD ORDERABLES Final R esult AYSHA DELGADO) 1 [facility] Department [place] [address] * (ABNORMAL) Influenza A/B, RSV, and COVID-19 PCR Nasopharyngeal (12/10/2024 4:39 PM INVENTORY ACCOUNTANT) [facility] COVID-19 RNA Negative Negative Influenza A RNA Positive(A) Negative [facility] ([place]) Influenza B RNA Negative Negative [facility] ([place]) RSV RNA Negative Negative [facility] ([place]) Comment: Interpretive data: Testing performed by [facility]. This test is performed using the [employer] Xpert Xpress CoV-2/Flu/RSV plus assay. This is a multiplex, real- time reverse transcriptase PCR assay intended for the qualitative detection of nucleic acid from SARS-CoV-2, influenza A, influenza B, and respiratory syncytial virus. This assay has been cleared by the [place] Food and Drug administration. The performance characteristics have been verified by the [facility]. Results must be considered in the clinical context, and a negative result does not rule out infection. Interpretive Data last revised 2023 Nasopharyngeal 12/10/2024 4: 39 PM INVENTORY ACCOUNTANT 12/10/2024 4:43 PM INVENTORY ACCOUNTANT Narrative AYSHA DELGADO) - 12/10/2024 5:23 PM INVENTORY ACCOUNTANT Is the Patient experiencing symptoms consistent with COVID?->Unknown Suresh Eastman NP LAB MICROBIOLOGY - GENERAL ORDERABLES Final Result AYSHA DELGADO) 1 [facility] Department [place] [address] * Troponin T high-sensitivity series (baseline, 2hr, 4hr, 6hr) (12/10/2024 2:31 PM INVENTORY ACCOUNTANT) [facility] Trop T hs <6 <=14 ng/L Comment: Interpretive Data For further hscTnT resources including the diagnostic algorithm and an aid in interpretation, copy and paste this link: https://nrl.testcatalog.org/show/hsTrop Current Interpretive Data last revised 2020. Blood 12/10/2024 2:31 PM INVENTORY ACCOUNTANT 12/10/2024 2:33 PM INVENTORY ACCOUNTANT Abiodun Jaime MD LAB BLOOD ORDERABLES Final R esult Performing Organization Address City/[facility]/ZIP Co de Phone Number AYSHA HOOPER ([place]) 1 [facility] [place] [address] * eGFR (12/10/2024 2:31 PM INVENTORY ACCOUNTANT) eGFR >90 >=60 mL/min/1. 73 m2 Comment: [...] last reviewed 2021. Blood 12/10/2024 2:31 PM INVENTORY ACCOUNTANT 12/10/2024 2:33 PM INVENTORY ACCOUNTANT Abiodun Jaime MD LAB BLOOD ORDERABLES Final R esult AYSHA HOOPER ([place]) 1 [facility] [place] [address] * (ABNORMAL) Differential, auto (12/10/2024 2:31 PM INVENTORY ACCOUNTANT) Neutrophil abs 12.9(H) 1.5 - 6.5 K/cumm [...] revised on 2018. Blood 12/10/2024 2:31 PM INVENTORY ACCOUNTANT 12/10/2024 2:33 PM INVENTORY ACCOUNTANT Abiodun Jaime MD LAB BLOOD ORDERABLES Final R esult [facility] ([place]) 1 [facility] [place] [address] * (ABNORMAL) CBC with auto differential (12/10/2024 2:31 PM INVENTORY ACCOUNTANT) Pathologist [facility] WBC 16.7(H) 3.8 - 9.9 K/cumm Hgb 10.7(L) 11.9 - 15.5 g/dL [facility] ([place]) Hct 32.2(L) 35.6 - 45.5 % [facility] ([place]) Plt 409(H) 150 - 400 K/cumm [facility] ([place]) MPV 9.6 9.1 - 12.3 fL [facility] ([place]) RBC 3.57(L) 3.90 - 5.20 M/cumm [facility] ([place]) MCV 90.2 81.3 - 96.4 fL [facility] ([place]) MCH 30.0 27.1 - 33.3 pg [facility] ([place]) MCHC 33.2 32.3 - 35.7 g/dL [facility] ([place]) RDW CV 12.8 11.1 - 14.9 % [facility] ([place]) RDW SD 42.4 35.7 - 48.1 fL [facility] ([place]) NRBC abs 0.00 0.00 - 0.01 K/cumm [facility] ([place]) Blood Venous blood specimen / Unknown 12/10/2024 2:31 PM INVENTORY ACCOUNTANT 12/10/2024 2:33 PM INVENTORY ACCOUNTANT Abiodun Jaime MD LAB BLOOD ORDERABLES Final R esult AYSHA HOOPER ([place]) 1 [facility] [place] [address] * (ABNORMAL) Comprehensive metabolic panel (12/10/2024 2:31 PM INVENTORY ACCOUNTANT) Pathologist [facility] Sodium 135 135 - 145 mmol/L Potassium, pl 3.3 3.3 - 4.9 mmol/L [facility] ([place]) Chloride 104 97 - 110 mmol/L [facility] ([place]) CO2 18(L) 22 - 32 mmol/L [facility] ([place]) Anion gap 13 2 - 15 mmol/L [facility] ([place]) BUN 4(L) 6 - 25 mg/dL [facility] ([place]) Creatinine 0.64 0.60 - 1.10 mg/dL [facility] ([place]) Glucose 118 70 - 199 mg/dL [facility] ([place]) [...] 6.8 6.5 - 8.5 g/dL [facility] ([place]) Albumin 3.6 3.5 - 5.0 g/dL [facility] ([place]) Alk phos 167(H) 40 - 130 Units/L [facility] ([place]) ALT 18 7 - 45 Units/L [facility] ([place]) AST 18 10 - 45 Units/L [facility] ([place]) Blood 12/10/2024 2:31 PM INVENTORY ACCOUNTANT 12/10/2024 2:33 PM INVENTORY ACCOUNTANT us Abiodun Jaime MD LAB BLOOD ORDERABLES Final R esult [facility] ([place]) 1 [facility] Department [place] [address] * ECG 12 lead (12/10/2024 2:28 PM INVENTORY ACCOUNTANT) 12/10/2024 2:28 PM INVENTORY ACCOUNTANT Narrative [facility] - 12/11/2024 6:32 AM INVENTORY ACCOUNTANT Vent Rate: 99 bpm RR Interval: 606 msec AR Interval: 159 msec QRS Duration: 62 msec QT Interval: 347 msec QTC Interval: 403 msec P-R-T [place]: 50 - 54 - 50 degrees IMPRESSION: Baseline artifact, probable SINUS RHYTHM LEFT ATRIAL ENLARGEMENT [-0.15mV P WAVE IN V1/V2] LOW QRS VOLTAGE IN PRECORDIAL LEADS [QRS DEFLECTION < 1.0 mV IN CHEST LEADS] ABNORMAL ECG NO CHANGE FROM PREVIOUS TRACING NOTED Electronically Signed By: David Iglesias MD us Abiodun Jaime MD ECG ORDERABLES Final Result Performing Organization Address City/[facility]/ZIP Co de Phone Number [facility] * Troponin T high-sensitivity 4-hour (12/01/2024 1:46 AM INVENTORY ACCOUNTANT) Trop T hs 7 <=14 ng/L Comment: Interpretive Data For further hscTnT resources including the diagnostic algorithm and an aid in interpretation, copy and paste this link: https://nrl.testcatalog.org/show/hsTrop Current Interpretive Data last revised 2020. Trop T hs delta 1 ng/L [facility] ([place]) Trop T hs interp Insignificant [facility] ([place]) Blood 12/01/2024 1:46 AM INVENTORY ACCOUNTANT 12/01/2024 1:52 AM INVENTORY ACCOUNTANT us Giuliano Michael MD LAB BLOOD ORDERABLES Final Re sult [facility] ([place]) 1 [facility] Department of Laboratories [place], [place] [id number] * (ABNORMAL) Urinalysis reflex to microscopic and culture Urine (12/01/2024 1:46 AM INVENTORY ACCOUNTANT) Color, ur Yellow Yellow Clarity, ur Clear [...] tendency for uric acid stone formation. Source: [facility] [employer] Current Interpretive Data was last revised on 2017 Protein, ur ql Negative Negative [facility] ([place]) Glucose, ur ql Negative Negative [facility] ([place]) Ketones, ur Negative Negative [facility] ([place]) Bilirubin, ur Negative Negative [facility] ([place]) Blood, ur 1+(A) Negative [facility] ([place]) Urobilinogen, ur <2.0 <2.0 mg/dL [facility] ([place]) Nitrite, ur Negative Negative [facility] ([place]) Leukocyte esterase, ur Negative Negative [facility] ([place]) UA reflex comment Reflex to microscopic UA will be performed. [facility] ([place]) Urine 12/01/2024 1:46 AM INVENTORY ACCOUNTANT 12/01/2024 1:52 AM INVENTORY ACCOUNTANT Narrative [facility] ([place]) - 12/01/2024 1:56 AM INVENTORY ACCOUNTANT If patient unable to urinate, straight cath us Giuliano Michael MD LAB MICROBIOLOGY - GENERAL OR DERABLES Final Result [facility] ([place]) 1 [facility] Department [place] [address] * (ABNORMAL) Urinalysis, microscopic only (12/01/2024 1:46 AM INVENTORY ACCOUNTANT) WBC, ur 0-5 0 - 5 /HPF RBC, ur 0-2 0 - 2 /HPF [facility] ([place]) Bacteria, ur 1+(A) [facility] ([place]) Mucous, ur Present(A) [facility] ([place]) Culture Reflex Comment Reflex conditions for urine culture (WBC >10) not met. [facility] ([place]) Urine 12/01/2024 1:46 AM INVENTORY ACCOUNTANT 12/01/2024 1:52 AM INVENTORY ACCOUNTANT Natalie ODZIER LAB URINE ORDERABLES Judit l Result Performing Organization Address [facility]/ZIP Co de Phone Number AYSHA HOOPER ([place]) 1 [facility] [place] [address] * (ABNORMAL) Influenza A/B, RSV, and COVID-19 PCR Nasopharyngeal (11/30/2024 10:01 PM INVENTORY ACCOUNTANT) COVID-19 RNA Negative Negative Influenza A RNA Positive(A) Negative [facility] ([place]) Influenza B RNA Negative Negative [facility] ([place]) RSV RNA Negative Negative [facility] ([place]) Comment: Interpretive data: Testing performed by [facility]. This test is performed using the Tappit Xpert Xpress CoV-2/Flu/RSV plus assay. This is a multiplex, real- time reverse transcriptase PCR assay intended for the qualitative detection of nucleic acid from SARS-CoV-2, influenza A, influenza B, and respiratory syncytial virus. This assay has been cleared by the [place] Food and Drug administration. The performance characteristics have been verified by the [facility]. Results must be considered in the clinical context, and a negative result does not rule out infection. Interpretive Data last revised 2023 Nasopharyngeal 11/30/2024 10 :01 PM INVENTORY ACCOUNTANT 11/30/2024 10:12 PM INVENTORY ACCOUNTANT Narrative [facility] ([place]) - 11/30/2024 11:00 PM INVENTORY ACCOUNTANT Is the Patient experiencing symptoms consistent with COVID?->Yes us Giuliano Michael MD LAB MICROBIOLOGY - GENERAL OR DERABLES Final Result Performing Organization Address City/[facility]/ZIP Co de Phone Number AYSHA HOOPER ([place]) 1 [facility] [place] [address] * Blood culture Blood (11/30/2024 10:01 PM INVENTORY ACCOUNTANT) Report Final Report: No growth Comment:Testing performed by : [facility], [address] [place] [address] Blood 11/30/2024 10:0 1 PM INVENTORY ACCOUNTANT 12/01/2024 12:26 AM INVENTORY ACCOUNTANT Narrative AYSHA HOOPER ([place]) - 12/06/2024 7:00 AM INVENTORY ACCOUNTANT From a different site than #1. Collection->Peripheral [...] performance characteristics have been verified by the [facility] Microbiology Laboratory. For questions about this culture, contact the Microbiology Laboratory at [phone]. Interpretive data was last revised on 24. Giuliano Michael MD LAB MICROBIOLOGY - GENERAL OR DERABLES Final Result AYSHA HOOPER ([place]) 1 [facility] Department [place] [address] * Troponin T high-sensitivity series (baseline, 2hr, 4hr, 6hr) (11/30/2024 9:53 PM INVENTORY ACCOUNTANT) Trop T hs <6 <=14 ng/L Comment: Interpretive Data For further hscTnT resources including the diagnostic algorithm and an aid in interpretation, copy and paste this link: https://nrl.testcatalog.org/show/hsTrop Current Interpretive Data last revised 2020. Blood 11/30/2024 9:53 PM INVENTORY ACCOUNTANT 11/30/2024 10:12 PM INVENTORY ACCOUNTANT us Giuliano Michael MD LAB BLOOD ORDERABLES Final Re sult AYSHA HOOPER [place]) 1 [facility] [place] [address] * Sepsis Lactate w/ Reflex (11/30/2024 9:53 PM INVENTORY ACCOUNTANT) Sepsis Lactate 1.4 0.7 - 2.0 mmol/L Blood 11/30/2024 9:53 PM INVENTORY ACCOUNTANT 11/30/2024 10:12 PM INVENTORY ACCOUNTANT us Giuliano Michael MD LAB BLOOD ORDERABLES Final Re sult Performing Organization Address City/State/[facility] Co de Phone Number AYSHA HOOPER ([place]) [address] [place] [address] [place] [address] * eGFR (11/30/2024 9:53 PM INVENTORY ACCOUNTANT) eGFR >90 >=60 mL/min/1. 73 m2 Comment: [...] last reviewed 2021. Blood 11/30/2024 9:53 PM INVENTORY ACCOUNTANT 11/30/2024 10:12 PM INVENTORY ACCOUNTANT us Giuliano Michael MD LAB BLOOD ORDERABLES Final Re sult [facility] ([place]) 1 [facility] Department [place] [address] * (ABNORMAL) Differential, auto (11/30/2024 9:53 PM INVENTORY ACCOUNTANT) Neutrophil abs 12.1(H) 1.5 - 6.5 K/cumm Imm gran abs 0.1 0.0 - 0.1 K/cumm [facility] ([place]) Lymphocyte abs 1.3 0.8 - 3.3 K/cumm [facility] ([place]) Monocyte abs 0.7 0.2 - 0.8 K/cumm [facility] ([place]) Eosinophil abs 0.1 0.0 - 0.5 K/cumm [facility] ([place]) Basophil abs 0.1 0.0 - 0.1 K/cumm [facility] ([place]) Neutrophil pct 84.2 % [facility] ([place]) Comment: Interpretive Data Percent cell count reference ranges are not reported, since discordance with absolute values may lead to misinterpretation of CBC data. Current Interpretive Data was last revised on 2018. Imm gran pct 0.3 % [facility] ([place]) Comment: Interpretive Data Percent cell count reference [...] 2018. Monocyte pct 4.8 % [facility] ([place]) Comment: Interpretive Data Percent cell count reference ranges are not reported, since discordance with absolute values may lead to misinterpretation of CBC data. Current Interpretive Data was last revised on 2018. Eosinophil pct 0.8 % [facility] ([place]) Comment: Interpretive Data Percent cell count reference [...] revised on 2018. Blood 11/30/2024 9:53 PM INVENTORY ACCOUNTANT 11/30/2024 10:12 PM INVENTORY ACCOUNTANT us Giuliano Michael MD LAB BLOOD ORDERABLES Final Re sult [facility] ([place]) 1 [facility] Department [place] [address] * (ABNORMAL) CBC with auto differential (11/30/2024 9:53 PM INVENTORY ACCOUNTANT) WBC 14.4(H) 3.8 - 9.9 K/cumm Hgb [...] blood specimen / Unknown 11/30/2024 9:53 PM INVENTORY ACCOUNTANT 11/30/2024 10:12 PM INVENTORY ACCOUNTANT Giuliano Michael MD LAB BLOOD ORDERABLES Final Re sult AYSHA HOOPER ([place]) 1 [facility] [place] [address] * Blood culture Blood (11/30/2024 9:53 PM INVENTORY ACCOUNTANT) Report Final Report: No growth Comment:Testing performed by : [facility], [address] [place]., [address] Blood 11/30/2024 9:53 PM INVENTORY ACCOUNTANT 12/01/2024 12:26 AM INVENTORY ACCOUNTANT Narrative AYSHA HOOPER ([place]) - 12/06/2024 7:00 AM INVENTORY ACCOUNTANT Collection->Peripheral 1. Blood cultures are incubated for [...] performance characteristics have been verified by the [facility] Microbiology Laboratory. For questions about this culture, contact the Microbiology Laboratory at [phone]. Interpretive data was last revised on 24. us Giuliano Michael MD LAB MICROBIOLOGY - GENERAL OR DERABLES Final Result AYSHA HOOPER ([place]) 1 [facility] [place] [address] * (ABNORMAL) Comprehensive metabolic panel (11/30/2024 9:53 PM INVENTORY ACCOUNTANT) Sodium 134(L) 135 - 145 mmol/L Potassium, pl 3.7 3.3 - 4.9 mmol/L [facility] ([place]) Chloride 99 97 - 110 [...] [facility] ([place]) Blood 11/30/2024 9:53 PM INVENTORY ACCOUNTANT 11/30/2024 10:12 PM INVENTORY ACCOUNTANT Giuliaon Michael MD LAB BLOOD ORDERABLES Final Re sult Performing Organization Address City/[facility]/ZIP Co de Phone Number AYSHA [facility] ([place]) 1 [facility] Department [place] [address] * ECG 12 lead (11/30/2024 9:38 PM INVENTORY ACCOUNTANT) 11/30/2024 9:38 PM INVENTORY ACCOUNTANT Narrative [facility] - 12/01/2024 10:02 AM INVENTORY ACCOUNTANT Vent Rate: 114 bpm RR Interval: 524 msec AR Interval: 149 msec QRS Duration: 76 msec QT Interval: 327 msec QTC Interval: 395 msec P-R-T [place]: 44 - 56 - 43 degrees IMPRESSION: SINUS TACHYCARDIA ABNORMAL RHYTHM ECG NO CHANGE FROM PREVIOUS TRACING NOTED Electronically Signed By: David Iglesias MD us Giuliano Michael MD ECG ORDERABLES Final Result Performing Organization Address [facility] de Phone Number [facility] [employer] [facility] * (ABNORMAL) Urinalysis reflex to microscopic and culture Urine (11/14/2024 1:06 PM INVENTORY ACCOUNTANT) Color, ur Red(A) Yellow Clarity, ur Turbid(A) Clear [facility] ([place]) Specific gravity, ur See Comment 1.003 - 1.030 [facility] ([place]) pH, urine See Comment [facility] ([place]) Comment: Interpretive Data U rine pH is affected by diet, medications, systemic acid-base disturbances, and renal tubular function. pH may affect urinary stone formation. For example, urine pH below 6.0 may help reduce the tendency for calcium phosphate stones and pH greater than 6.0 may reduce the tendency for uric acid stone formation. Source: [employer] Current Interpretive Data was last revised on [...] ([place]) Leukocyte esterase, ur See Comment Negative [facility] ([place]) UA reflex comment Reflex conditions for microscopic UA and culture not met. AYSHA [facility] ([place]) Urine 11/14/2024 1:06 PM INVENTORY ACCOUNTANT 11/14/2024 1:11 PM INVENTORY ACCOUNTANT Dominique Rubio MD LAB MICROBIOLOGY - GENERA L ORDERABLES Final Result AYSHA [facility] ([place]) [address] [facility] [place] [place] [address] * (ABNORMAL) Urinalysis, microscopic only (11/14/2024 1:06 PM INVENTORY ACCOUNTANT) WBC, ur >50(A) 0 - 5 /HPF RBC, ur >50(A) 0 - 2 /HPF [facility] ([place]) Epithelial cells, squamous, ur 6-10(A) 0 - 5 /HPF [facility] ([place]) Yeast, ur 2+(A) [facility] ([place]) Mucous, ur Present(A) [facility] ([place]) Culture Reflex Comment Reflex to urine culture will be performed. AYSHA [facility] ([place]) Urine 11/14/2024 1:06 PM INVENTORY ACCOUNTANT 11/14/2024 1:11 PM INVENTORY ACCOUNTANT Dominique Rubio MD LAB URINE ORDERABLES Judit l Result Performing Organization Address City/[facility]/ZIP Co de Phone Number [facility] ([place]) [address] [facility] [place] [address] * Urine culture Urine (11/14/2024 1:06 PM INVENTORY ACCOUNTANT) Report Final Report: Less than 100,000 colonies/mL (clinically insignificant growth based on current clinical standards) Comment:Testing performed by : [facility], [address] [facility], [place]., [address] Organism (CLINICALLY INSIGNIFICANT GROWTH [facility] ([facility]) Urine 11/14/2024 1:06 PM INVENTORY ACCOUNTANT 11/14/2024 4:31 PM INVENTORY ACCOUNTANT Narrative AYSHA HOOPER ([facility]) - 11/15/2024 5:29 PM INVENTORY ACCOUNTANT Urine culture reflexed based upon urinalysis results. Testing performed by [facility] ([phone]) Dominique Rubio MD LAB MICROBIOLOGY - GENERA L ORDERABLES Final Result AYSHA DELGADO) [address] [facility] Department [place] [address] * US Ob 14 Weeks Or Over (11/14/2024 12:35 PM INVENTORY ACCOUNTANT) Anatomical Region Laterality Modality Abdomen N/A Ultrasound 11/14/2024 1:12 PM INVENTORY ACCOUNTANT Narrative 11/14/2024 1:27 PM INVENTORY ACCOUNTANT EXAM DESCRIPTION: US OB 14 WEEKS OR [...] 1:27 PM - Electronically signed by Wild Oilva M.D. NS: NS Report ID: [id number] Reading Location: [id number] Procedure Note Wild Oliva MD - 11/14/2024 [...] Wild Oliva M.D. NS: NS Report ID: [id number] Reading Location: [place] [address] us Dominique Rubio MD IMG OB US PROCEDURES Judit l Result * eGFR (11/14/2024 10:18 AM INVENTORY ACCOUNTANT) eGFR >90 >=60 mL/min/1. 73 m2 Comment: [...] reviewed 2021. Blood 11/14/2024 10:1 8 AM INVENTORY ACCOUNTANT 11/14/2024 10:21 AM INVENTORY ACCOUNTANT us Dominique Rubio MD LAB BLOOD ORDERABLES Judit l Result [facility] [place]) [address] [facility] [place] [address] * (ABNORMAL) Differential, auto (11/14/2024 10:18 AM INVENTORY ACCOUNTANT) Neutrophil abs 10.6(H) 1.5 - 6.5 K/cumm [...] on 2018. Blood 11/14/2024 10:1 8 AM INVENTORY ACCOUNTANT 11/14/2024 10:22 AM INVENTORY ACCOUNTANT Dominique Rubio MD LAB BLOOD ORDERABLES Judit l Result [facility] ([facility]) 1 [facility] [place] [address] * (ABNORMAL) CBC with auto differential (11/14/2024 10:18 AM INVENTORY ACCOUNTANT) WBC 14.0(H) 3.8 - 9.9 K/cumm Hgb 12.1 11.9 - 15.5 g/dL [facility] ([facility]) Hct 35.4(L) 35.6 - 45.5 % [...] [facility] ([facility]) Blood 11/14/2024 10:1 8 AM INVENTORY ACCOUNTANT 11/14/2024 10:22 AM INVENTORY ACCOUNTANT Dominique Rubio MD LAB BLOOD ORDERABLES Judit l Result AYSHA HOOPER ([facility]) 1 [facility] [place] [address] * ABO/Rh (11/14/2024 10:18 AM INVENTORY ACCOUNTANT) ABO/Rh A Positive Blood 11/14/2024 10:1 8 AM INVENTORY ACCOUNTANT 11/14/2024 10:22 AM INVENTORY ACCOUNTANT Narrative [facility] [place] - 11/14/2024 11:04 AM INVENTORY ACCOUNTANT Has the patient had Daratumumab or Isatuximab in the past 6 months?->Unknown us Dominique Rubio MD LAB BLOOD BANK TEST ORDER HECTOR Final Result Performing Organization Address [facility] Co de Phone Number [facility] [place] [address] [place] [address] [place] [address] * Antibody screen (11/14/2024 10:18 AM INVENTORY ACCOUNTANT) Araceli, indirect, Gel Interpretation Negative ABSC Blood 11/14/2024 10:1 8 AM INVENTORY ACCOUNTANT 11/14/2024 10:22 AM INVENTORY ACCOUNTANT Narrative [facility] [place] - 11/14/2024 11:04 AM INVENTORY ACCOUNTANT Has the patient had Daratumumab or Isatuximab in the past 6 months?->Unknown us Dominique Rubio MD LAB BLOOD BANK TEST ORDER HECTOR Final Result Performing Organization Address [facility] de Phone Number [facility] [place] [address] [place] [address] [place] [address] * (ABNORMAL) hCG, blood, quantitative (11/14/2024 10:18 AM INVENTORY ACCOUNTANT) hCG, quant 17,019.0( H) 0.0 - 5.0 IUnits/L Comment: Interpretive Data Male: < 5 IU/L Non- premenopausal Female: <5 IU/L The Mathieu hCG Beta Quant assay procedure was used. Results from different manufacturers or methods may not be comparable. Serial testing should be performed using the same method. Interpretive Data was last revised on 2023 Blood 11/14/2024 10:1 8 AM INVENTORY ACCOUNTANT 11/14/2024 10:21 AM INVENTORY ACCOUNTANT us Dominique Rubio MD LAB BLOOD ORDERABLES Judit l Result [facility] ([facility]) [address] [facility] Department [place] [address] * (ABNORMAL) Comprehensive metabolic panel (11/14/2024 10:18 AM INVENTORY ACCOUNTANT) Sodium 137 135 - 145 mmol/L Potassium, pl 3.4 3.3 - 4.9 mmol/L [facility] ([facility]) Chloride 106 97 - 110 mmol/L [facility] ([facility]) CO2 22 22 - 32 mmol/L [facility] ([facility]) Anion gap 10 2 - 15 [...] [facility] ([facility]) Blood 11/14/2024 10:1 8 AM INVENTORY ACCOUNTANT 11/14/2024 10:21 AM INVENTORY ACCOUNTANT Dominique Rubio MD LAB BLOOD ORDERABLES Judit l Result [facility] ([place]) [address] [facility] [place] [address] from Last 3 Months Insurance [facility] [id number] [place] [address] Advance Directives For more information, please contact: [phone] * Full Code (Latest Code Status on [...] n case of cardiopulmonary arrest Care Teams Garment Steamer Relationship Specialty Start Date End Date No, Physician PCP - General 11/30/24
--- OUTSIDE RECORDS SUMMARY | 2025-01-10 18:51 | XMS_ITS | Data Portability ---
Author Organization [facility] Address [address] [place] [address] Care Team Providers Care Adjunct Psychology Faculty Member Name Role Phone TRAVIS BARNETT Primary Care Provider BARRY PHILIP Medicare Interviewer Assessment Encounter Date Assessment Date Assessment LastModified by Organization Details LastModified Time 11/08/2024 11/08/2024 12 weeks , will get an US for EDC and viability WIll need to discuss quitting smoking with abruption hx. Not available 11/08/2024 11:38:00 11/21/2024 11/21/2024 continues to have irregular bleeding due to sub chorionic hemorrhage short term f/u Not available 11/21/2024 15:10:09 12/12/2024 12/12/2024 18 weeks doing well flu A currently stable sub chorionic hemorrhage Not available 12/12/2024 15:52:09 01/05/2025 01/05/2025 22 weeks doing well, HROB consult for hx of abruption planning repeat c/s and BTL this time Not available 01/05/2025 11:22:28 Plan of Treatment Reminders Order Date Submit Date Provider Last Modified By Organization Details Last Modified Time Details Appointments OB 15 2024 02:45P M Barry Philip MD Not available Not available Not available Lab urinalysi s, dipstick 2024 025 In-Office Order, Internal Use Only DO Not Attach Compendium DO Not Attach Compendium, Do Not Delete/merge, [id number] 01/05/2025 11:22:29 urinalysi s, dipstick 2024 025 In-Office Order, Internal Use Only DO Not Attach Compendium DO Not Attach Compendium, Do Not Delete/merge, [id number] 12/12/2024 15:44:16 panel 2024 025 [facility], [address] [place] [address], [address], [place], [address], 11/10/2024 16:13:28 trichomon as vaginalis RNA 2024 025 [facility], [address] [place] [address], [address], [place], [address], 11/10/2024 16:13:31 drug screen, urine 2024 025 [facility], [address] [place] [address], [facility] [address], [place], [address], 11/11/2024 07:14:23 HSV 2 IgG Ab, QN, IA, serum 2024 025 [facility], [address] [facility] [address], [place], [address], 11/10/2024 16:13:30 aneuploid y risk and X & Y analysis, chromosom e specific circulati ng cell free (CCF) DNA, maternal serum 2024 025 [facility], [address] [facility], [facility] [address], [place], [address], 11/12/2024 07:08:03 Referral dermatolo gist referral 2023 024 [facility] ([facility]), [address] [facility] [facility], [place], [address], 08/29/2024 16:21:59 Procedures None recorded. Surgeries None recorded. Imaging US, obstetric , 1st trimester 2024 025 (Scheduling), [address] [facility], [place], [address], 11/23/2024 09:47:41 US, obstetric , 1st trimester - please fax report to [phone] 2024 025 (Scheduling), [address], [place], [address], 11/13/2024 08:47:55 Medication Orders clindamyc in 1 % topical gel 2023 025 [facility][id number], [address], [place], [place], [id number], 11/08/2024 10:52:28 clindamyc in HCl 300 mg capsule 2023 025 [id number], [address], [place], [place], [id number], 11/08/2024 10:52:20 Patient TargetsNo targets recorded. Patient Instructions Encounter Date Encounter Id Patient Instructions Last Modified By Organization Details Last Modified Time 11/08/2024 [id number] After Age 35: Care Instructions Not available 11/08/2024 11:38:30 edinburgh depression scale* Not available 11/08/2024 11:36:48 11/21/2024 [id number] threatened miscarriage: care instructions Not available 11/21/2024 14:32:33 12/12/2024 [id number] After Age 35: Care Instructions Not available 12/12/2024 15:52:10 01/05/2025 [id number] A healthy lifestyle: care instructions Not available 01/05/2025 11:22:29 Quitting Tobacco : Care Instructions Not available 01/05/2025 11:22:29 After Age 35: Care Instructions Not available 01/05/2025 11:22:29 Reason for Referral [employer] Referral for A xillary hidradenitis suppurativa Referring Physician: Travis Barnett, Family Medicine, Encounter Date: 08/15/2024 Results Created Date Observation Date Name Description Value Unit Range Abnormal Flag Note LastModifiedBy Organization Detail LastModifiedTime 07/19/20 24 07/20/2024 IGP, APTIM A HPV, RFX 16/18 ,45 HPV aptima NEGATI VE negati ve This nucle ic acid ampli ficat ion test detec ts fourt een high- risk HPV types (16,1 8,31, 33,35 ,39,4 5,51, 52,56 ,58,5 9,66, 68) witho ut diffe renti ation . Not Available [facility] ([facility]) [address] [facility], [place], [address], 07/25/2024 11:15:20 07/19/2007/25/2024 IGP, APTIM A HPV, RFX 16/18 ,45 diagnosis: COMMEN T NEGAT DAVEY FOR INTRA EPITH ELIAL LESDA N OR STEVIE ALVARES . Not Available [facility] ([facility]) [address] [facility], [place], [address], 07/25/2024 11:15:20 07/19/20 24 07/25/2024 IGP, APTIM A HPV, RFX 16/18 ,45 specimen adequacy: COMMEN T Satis facto ry for evalu ation . Endoc ervic al and/o r squam ous metap lasti c cells (endo cervi marisela compo nent) are prese nt. Not Available [facility] ([facility]) [address] [facility], [place], [address], 07/25/2024 11:15:20 07/19/20 24 07/25/2024 IGP, APTIM A HPV, RFX 16/18 ,45 clinician provided ICD10: COMMEN T Z01.4 19 Not Available [facility] ([facility]) [address] [place], [address], 07/25/2024 11:15:20 07/19/20 24 07/25/2024 IGP, APTIM A HPV, RFX 16/18 ,45 performed by: KOBY Tsang th, Cytobeto pérez (ASCP ) Not Available [facility] ([facility]) [address] [place], [address], 07/25/2024 11:15:20 07/19/20 24 07/25/2024 IGP, APTIM A HPV, RFX 16/18 ,45 . . Not Available [facility] ([facility]) [address] [place], [address], 07/25/2024 11:15:20 07/19/20 24 07/25/2024 IGP, APTIM A HPV, RFX 16/18 ,45 note: KOBY Pérez The Pap smear is a scree christopher test desig irma to aid in the detec tion of steve ligna nt and malig nant condi tions of the uteri ne cervi x. It is not a diagn ostic proce dure and shoul d not be used as the sole means of detec ting cervi marisela cance r. Both false -posi tive and false -nega tive repor ts do occur . Not Available [facility] ([facility]) [address] [place], [address], 07/25/2024 11:15:20 07/19/20 24 07/25/2024 IGP, APTIM A HPV, RFX 16/18 ,45 test methodology: KOBY Pérez This liqui d based ThinP rep(R ) pap test was scree irma with the use of an image guide dominic clemente Not Available [facility] ([facility]) [address] [place], [address], 07/25/2024 11:15:20 07/19/20 24 07/25/2024 IGP, APTIM A HPV, RFX 16/18 ,45 HPV genotype reflex COMMEN T Crite dale not met, HPV Genot ype not perfo rmed. Not Available [facility] ([facility]) [address] [facility], [place], [address], 07/25/2024 11:15:20 11/08/19 25 11/09/2024 INTER PRETA TION: interpretati on: Commen t Not infec darrian with HCV unles s early or acute infec tion is suspe cted (whic h may be delay ed in an immun ocomp romis ed indiv idual ), or other evide nce exist s to indic ate HCV infec tion. Not Available [facility] ([facility]) [address] [facility], [place], [address], 11/10/2024 16:13:27 11/08/19 25 11/09/2024 PREGN STACIA, INITI AL SCREE N HBsAg screen NEGATI VE negati ve Not Available [facility] ([facility]) [address] [place], [address], 11/10/2024 16:13:28 11/08/19 25 11/09/2024 PREGN STACIA, INITI AL SCREE N HCV Ab NON REACTI VE nonrea ctive Not Available [facility] ([facility]) [address] [place], [address], 11/10/2024 16:13:28 11/08/19 25 11/09/2024 PREGN STACIA, INITI AL SCREE N RPR NON REACTI VE nonrea ctive Not Available [facility] ([facility]) [address] [place], [address], 11/10/2024 16:13:28 11/08/19 25 11/09/2024 PREGN STACIA, INITI AL SCREE N rubella antibodies, IgG 2.50 index immune >0.99 Non-i mmune <0.90 Equiv ocal 0.90 - 0.99 Immun e >0.99 Not Available [facility] ([facility]) [address] [place], [address], 11/10/2024 16:13:28 11/08/19 25 11/09/2024 PREGN STACIA, INITI AL SCREE N ABO grouping A Not Available [facility] ([facility]) [address] [facility], [place], [address], 11/10/2024 16:13:28 11/08/19 25 11/09/2024 PREGN STACIA, INITI AL SCREE N Rh factor POSITI VE Pleas e note: Prior recor ds for this patie nt's ABO / Rh type are not avail able for addit ional verif icati on. Not Available [facility] ([facility]) [address] [facility], [place], [address], 11/10/2024 16:13:28 11/08/19 25 11/09/2024 PREGN STACIA, INITI AL SCREE N antibody screen NEGATI VE negati ve Not Available [facility] ([facility]) [address] [facility], [place], [address], 11/10/2024 16:13:28 11/08/19 25 11/09/2024 PREGN STACIA, INITI AL SCREE N HIV Ab/P24 Ag screen NON REACTI VE nonrea ctive HIV-1 /HIV- 2 antib odies and HIV-1 p24 antig en were NOT detec darrian. There is no labor atory evide nce of HIV infec tion. HIV Negat davey Not Available [facility] ([facility]) [address] [facility], [place], [address], 11/10/2024 16:13:28 11/08/19 25 11/09/2024 PREGN STACIA, INITI AL SCREE N WBC 11.9 x10e3 /uL 3.4-10 .8 above high normal Not Available [facility] ([facility]) [address] [place], [address], 11/10/2024 16:13:28 11/08/19 25 11/09/2024 PREGN STACIA, INITI AL SCREE N RBC 4.45 x10e6 /uL 3.77-5 .28 Not Available [facility] ([facility]) [address] [facility], [place], [address], 11/10/2024 16:13:28 11/08/19 25 11/09/2024 PREGN STACIA, INITI AL SCREE N hemoglobin 13.3 g/dL 11.1-1 5.9 Not Available [facility] ([facility]) [address] [facility], [place], [address], 11/10/2024 16:13:28 11/08/19 25 11/09/2024 PREGN STACIA, INITI AL SCREE N hematocrit 41.8 % 34.0-4 6.6 Not Available [facility] ([facility]) [address] [facility], [place], [address], 11/10/2024 16:13:28 11/08/19 25 11/09/2024 PREGN STACIA, INITI AL SCREE N MCV 94 fL 79-97 Not Available [facility] ([facility]) [address] [facility], [place], [address], 11/10/2024 16:13:28 11/08/19 25 11/09/2024 PREGN STACIA, INITI AL SCREE N MCH 29.9 pg 26.6-3 3.0 Not Available [facility] ([facility]) [address] [place], [address], 11/10/2024 16:13:28 11/08/19 25 11/09/2024 PREGN STACIA, INITI AL SCREE N MCHC 31.8 g/dL 31.5-3 5.7 Not Available [facility] ([facility]) [address] [place], [address], 11/10/2024 16:13:28 11/08/19 25 11/09/2024 PREGN STACIA, INITI AL SCREE N RDW 12.0 % 11.7-1 5.4 Not Available [facility] ([facility]) [address], [place], [address], 11/10/2024 16:13:28 11/08/19 25 11/09/2024 PREGN STACIA, INITI AL SCREE N platelets 305 x10e3 /uL 150-45 0 Not Available [facility] ([facility]) [address], [place], [address], 11/10/2024 16:13:28 11/08/19 25 11/09/2024 PREGN STACIA, INITI AL SCREE N neutrophils 74 % notest ab. Not Available [facility] ([facility]) [address], [place], [address], 11/10/2024 16:13:28 11/08/19 25 11/09/2024 PREGN STACIA, INITI AL SCREE N lymphs 19 % notest ab. Not Available [facility] ([facility]) [address], [place], [address], 11/10/2024 16:13:28 11/08/19 25 11/09/2024 PREGN STACIA, INITI AL SCREE N monocytes 4 % notest ab. Not Available [facility] ([facility]) [address], [place], [address], 11/10/2024 16:13:28 11/08/19 25 11/09/2024 PREGN STACIA, INITI AL SCREE N eos 2 % notest ab. Not Available [facility] ([facility]) [address] [facility], [place], [address], 11/10/2024 16:13:28 11/08/19 25 11/09/2024 PREGN STACIA, INITI AL SCREE N basos 1 % notest ab. Not Available [facility] ([facility]) [address] [facility], [place], [address], 11/10/2024 16:13:28 11/08/19 25 11/09/2024 PREGN STACIA, INITI AL SCREE N neutrophils (absolute) 8.8 x10e3 /uL 1.4-7. 0 above high normal Not Available [facility] ([facility]) [address] [facility], [place], [address], 11/10/2024 16:13:28 11/08/19 25 11/09/2024 PREGN STACIA, INITI AL SCREE N lymphs (absolute) 2.3 x10e3 /uL 0.7-3. 1 Not Available [facility] ([facility]) [address] [place], [address], 11/10/2024 16:13:28 11/08/19 25 11/09/2024 PREGN STACIA, INITI AL SCREE N monocytes(ab solute) 0.5 x10e3 /uL 0.1-0. 9 Not Available [facility] ([facility]) [address] [place], [address], 11/10/2024 16:13:28 11/08/19 25 11/09/2024 PREGN STACIA, INITI AL SCREE N eos (absolute) 0.3 x10e3 /uL 0.0-0. 4 Not Available [facility] ([facility]) [address] [place], [address], 11/10/2024 16:13:28 11/08/19 25 11/09/2024 PREGN STACIA, INITI AL SCREE N baso (absolute) 0.1 x10e3 /uL 0.0-0. 2 Not Available [facility] ([facility]) [address] [place], [address], 11/10/2024 16:13:28 11/08/19 25 11/09/2024 PREGN STACIA, INITI AL SCREE N immature granulocytes 0 % notest ab. Not Available [facility] ([facility]) [address] [place], [address], 11/10/2024 16:13:28 11/08/19 25 11/09/2024 PREGN STACIA, INITI AL SCREE N immature grans (abs) 0.0 x10e3 /uL 0.0-0. 1 Not Available [facility] ([facility]) [address] [facility], [place], [address], 11/10/2024 16:13:28 11/08/19 25 11/09/2024 PREGN STACIA, INITI AL SCREE N specific gravity <=1.00 5 1.005- 1.030 abnormal Not Available [facility] ([facility]) [address] [place], [address], 11/10/2024 16:13:28 11/08/19 25 11/09/2024 PREGN STACIA, INITI AL SCREE N pH 7.0 5.0-7. 5 Not Available [facility] ([facility]) [address] [place], [address], 11/10/2024 16:13:28 11/08/19 25 11/09/2024 PREGN STACIA, INITI AL SCREE N urine-color YELLOW yellow Not Available [facility] ([facility]) [address] [place], [address], 11/10/2024 16:13:28 11/08/19 25 11/09/2024 PREGN STACIA, INITI AL SCREE N appearance CLEAR clear Not Available [facility] ([facility]) [address] [place], [address], 11/10/2024 16:13:28 11/08/19 25 11/09/2024 PREGN STACIA, INITI AL SCREE N WBC esterase NEGATI VE negati ve Not Available [facility] ([facility]) [address] [place], [address], 11/10/2024 16:13:28 11/08/19 25 11/09/2024 PREGN STACIA, INITI AL SCREE N protein NEGATI VE negati ve/tra ce Not Available [facility] ([facility]) [address] [place], [address], 11/10/2024 16:13:28 11/08/19 25 11/09/2024 PREGN STACIA, INITI AL SCREE N glucose NEGATI VE negati ve Not Available [facility] ([facility]) [address] [place], [address], 11/10/2024 16:13:28 11/08/19 25 11/09/2024 PREGN STACIA, INITI AL SCREE N ketones NEGATI VE negati ve Not Available [facility] ([facility]) [address] [place], [address], 11/10/2024 16:13:28 11/08/19 25 11/09/2024 PREGN STACIA, INITI AL SCREE N occult blood NEGATI VE negati ve Not Available [facility] ([facility]) [address] [place], [address], 11/10/2024 16:13:28 11/08/19 25 11/09/2024 PREGN STACIA, INITI AL SCREE N bilirubin NEGATI VE negati ve Not Available [facility] ([facility]) [address] [place], [address], 11/10/2024 16:13:28 11/08/19 25 11/09/2024 PREGN STACIA, INITI AL SCREE N urobilinogen ,semi-qn 0.2 mg/dL 0.2-1. 0 Not Available [facility] ([facility]) [address] [place], [address], 11/10/2024 16:13:28 11/08/19 25 11/09/2024 PREGN STACIA, INITI AL SCREE N nitrite, urine NEGATI VE negati ve Not Available [facility] ([facility]) [address] [place], [address], 11/10/2024 16:13:28 11/08/19 25 11/09/2024 PREGN STACIA, INITI AL SCREE N microscopic examination COMMEN T Micro scopi c follo ws if indic ated. Not Available [facility] ([facility]) [address] [facility], [place], [address], 11/10/2024 16:13:28 11/08/19 25 11/09/2024 PREGN STACIA, INITI AL SCREE N microscopic examination SEE BELOW: Micro scopi c was indic ated and was perfo rmed. Not Available [facility] ([facility]) [address] [facility], [place], [address], 11/10/2024 16:13:28 11/08/19 25 11/10/2024 PREGN STAICA, INITI AL SCREE N chlamydia trachomatis, UMBERTO NEGATI VE negati ve Not Available [facility] ([facility]) [address] [facility], [place], [address], 11/10/2024 16:13:28 11/08/19 25 11/10/2024 PREGN STACIA, INITI AL SCREE N neisseria gonorrhoeae, UMBERTO NEGATI VE negati ve Not Available [facility] ([facility]) [address] [facility], [place], [address], 11/10/2024 16:13:28 11/08/19 25 11/10/2024 PREGN STACIA, INITI AL SCREE N urine culture,pren atal, w/gbs FINAL REPORT Not Available [facility] ([facility]) [address] [facility], [place], [address], 11/10/2024 16:13:28 11/08/19 25 11/09/2024 HSV-2 AB, IGG hsv 2 IgG, type spec NON REACTI VE nonrea ctive Ple ase note refer ence inter ronak seals e Curre nt guide lines and recom menda tions do not recom mend routi ne scree christopher for HSV-2 in asymp tomat ic indiv idual s, inclu ding those that are pregn ant. The detec tion of HSV-2 IgG antib odies in a singl e sampl e indic ates previ ous expos ure to HSV-2 but does not give infor matio n as to the site of HSV infec tion or the timin g of expos ure. The predi ctive value of posit davey and negat davey resul ts depen ds on the popul ation 's preva lence and the prete st likel ihood of HSV-2 . HSV-2 IgG testi ng perfo rmed using the [employer] HSV-2 IgG assay . Not Available [facility] ([facility]) [address] [place], [address], 11/10/2024 16:13:30 11/08/19 25 11/10/2024 TRICH VAG BY UMBERTO trich vag by UMBERTO NEGATI VE negati ve Not Available [facility] ([facility]) [address] [place], [address], 11/10/2024 16:13:31 11/08/19 25 11/09/2024 MICRO SCOPI C EXAMI NATIO N WBC 0-5 /hpf 0-5 Not Available [facility] ([facility]) [address] [place], [address], 11/10/2024 16:13:32 11/08/19 25 11/09/2024 MICRO SCOPI C EXAMI NATIO N RBC 0-2 /hpf 0-2 Not Available [facility] ([facility]) [address] [place], [address], 11/10/2024 16:13:32 11/08/19 25 11/09/2024 MICRO SCOPI C EXAMI NATIO N epithelial cells (non renal) 0-10 /hpf 0-10 Not Available [facility] ([facility]) [address] [place], [address], 11/10/2024 16:13:32 11/08/19 25 11/09/2024 MICRO SCOPI C EXAMI NATIO N casts None seen /lpf nonese en Not Available [facility] ([facility]) [address] [facility], [place], [address], 11/10/2024 16:13:32 11/08/19 25 11/09/2024 MICRO SCOPI C EXAMI NATIO N bacteria None seen nonese en/few Not Available [facility] ([facility]) [address] [facility], [place], [address], 11/10/2024 16:13:32 11/08/19 25 11/10/2024 RESUL T result 1 No growth Not Available [facility] ([facility]) [address] [facility], [place], [address], 11/10/2024 16:13:33 11/08/19 25 11/08/2024 [id number] 2 9+OXY CODON E+CEMENTING BULK MATERIAL OPERATOR -SCR please note: COMMEN T This assay provi ashlee a preli minar y uncon firme d grayson tical test resul t that may be suita ble for clini marisela manag ement of patie nts in certa in situa tions . Drug- test resul ts shoul d be inter prete d in the pasquale xt of clini marisela infor rosa maria n. Patie nt metab olic varia bles, speci fic drug chemi stry, and speci men hugo cteri stics can affec t test outco me. Techn ical consu ltati on is avail able if a test resul t is incon siste nt with an expec darrian outco me. Email : [email or web address] Phone : [phone] Not Available [facility] ([facility]) [address] [facility], [place], [address], 11/11/2024 07:14:23 11/08/19 25 11/10/2024 [id number] 2 9+OXY CODON E+CEMENTING BULK MATERIAL OPERATOR -SCR amphetamines screen, urine NEGATI VE NG/mL cutoff =1000 Not Available [facility] ([facility]) [address] [place], [address], 11/11/2024 07:14:23 11/08/1911/10/2024 [id number] 2 9+OXY CODON E+CEMENTING BULK MATERIAL OPERATOR -SCR barbiturates screen, urine NEGATI VE NG/mL cutoff =200 Not Available [facility] ([facility]) [address] [place], [address], 11/11/2024 07:14:23 11/08/1911/10/2024 [id number] 2 9+OXY CODON E+CEMENTING BULK MATERIAL OPERATOR -SCR benzodiazepi martha screen, urine NEGATI VE NG/mL cutoff =200 Not Available [facility] ([facility] [address] [place], [address], 11/11/2024 07:14:23 11/08/1911/10/2024 [id number] 2 9+OXY CODON E+CEMENTING BULK MATERIAL OPERATOR -SCR cannabinoid screen, urine NEGATI VE NG/mL cutoff =20 Not Available [facility] ([facility]) [address] [place], [address], 11/11/2024 07:14:23 11/08/1911/10/2024 [id number] 2 9+OXY CODON E+CEMENTING BULK MATERIAL OPERATOR -SCR cocaine (metab.) screen, urine NEGATI VE NG/mL cutoff =300 Not Available [facility] ([facility]) [address] [place], [address], 11/11/2024 07:14:23 11/08/1911/10/2024 [id number] 2 9+OXY CODON E+CEMENTING BULK MATERIAL OPERATOR -SCR opiate screen, urine NEGATI VE NG/mL cutoff =300 Opiat e test inclu ashlee Codei ne, Morph ine, Dingess morph one, Dingess codon e. Not Available [facility] ([facility]) [address] [place], [address], 11/11/2024 07:14:23 11/08/1911/10/2024 [id number] 2 9+OXY CODON E+CEMENTING BULK MATERIAL OPERATOR -SCR oxycodone/ox ymorphone, urine NEGATI VE NG/mL cutoff =100 Test inclu ashlee Oxyco done and Oxymo rphon e Not Available [facility] ([facility]) [address] [place], [address], 11/11/2024 07:14:23 11/08/1911/10/2024 [id number] 2 9+OXY CODON E+CEMENTING BULK MATERIAL OPERATOR -SCR phencyclidin e screen, urine NEGATI VE NG/mL cutoff =25 Not Available [facility] ([facility]) [address] [place], [address], 11/11/2024 07:14:23 11/08/19 25 11/10/2024 [id number] 2 9+OXY CODON E+CEMENTING BULK MATERIAL OPERATOR -SCR methadone screen, urine NEGATI VE NG/mL cutoff =300 Not Available [facility] ([facility]) [address] [place], [address], 11/11/2024 07:14:23 11/08/1911/10/2024 [id number] 2 9+OXY CODON E+CEMENTING BULK MATERIAL OPERATOR -SCR propoxyphene screen, urine NEGATI VE NG/mL cutoff =300 Not Available [facility] ([facility]) [address] [place], [address], 11/11/2024 07:14:23 11/08/1911/10/2024 [id number] 2 9+OXY CODON E+CEMENTING BULK MATERIAL OPERATOR -SCR creatinine, urine 19.3 mg/dL 20.0-3 00.0 below low normal Not Available [facility] ([facility]) [address] [place], [address], 11/11/2024 07:14:23 11/08/1911/10/2024 [id number] 2 9+OXY CODON E+CEMENTING BULK MATERIAL OPERATOR -SCR pH, urine 6.7 4.5-8. 9 Not Available [facility] ([facility]) [address] [facility], [place], [address], 11/11/2024 07:14:23 11/08/1911/10/2024 SPECI FIC GRAVI TY specific gravity 1.0024 Not Available [facility] ([facility]) [address] [facility], [place], [address], 11/11/2024 07:14:25 11/08/1911/12/2024 MATER NIT21 PLUS CORE gestation SINGLE TON Not Available [facility] ([facility]) [address] [facility], [place], [address], 11/12/2024 07:08:03 11/08/1911/12/2024 MATER NIT21 PLUS CORE fraction 8% Not Available [facility] ([facility]) [address] [place], [address], 11/12/2024 07:08:03 11/08/1911/12/2024 MATER NIT21 PLUS CORE gestational age > or = 9W: COMMEN T Not Provi ded Not Available [facility] ([facility]) [address] [facility], [place], [address], 11/12/2024 07:08:03 11/08/1911/12/2024 MATER NIT21 PLUS CORE test result NEGATI VE Not Available [facility] ([facility]) [address] [place], [address], 11/12/2024 07:08:03 11/08/1911/12/2024 MATER NIT21 PLUS CORE laborer chemical processing comments COMMEN T This speci men showe d an expec darrian repre senta tion of chrom osome 21, 18 and 13 mater ial. Clini marisela corre latio n is sugjune bestd. Not Available [facility] ([facility]) [address] [place], [address], 11/12/2024 07:08:03 11/08/1911/12/2024 MATER NIT21 PLUS CORE approved by KOBY farrell MD, PhD, [facility] tor, [place] Labor atori es Not Available [facility] ([facility]) [address] [place], [address], 11/12/2024 07:08:03 11/08/1911/12/2024 MATER NIT21 PLUS CORE trisomy 21 (down syndrome) NEGATI VE Not Available [facility] ([facility]) [address] [place], [address], 11/12/2024 07:08:03 11/08/1911/12/2024 MATER NIT21 PLUS CORE trisomy 18 (saxena syndrome) NEGATI VE Not Available [facility] ([facility]) [address] [place], [address], 11/12/2024 07:08:03 11/08/1911/12/2024 MATER NIT21 PLUS CORE trisomy 13 (patau syndrome) NEGATI VE Not Available [facility] ([facility]) [address] [place], [address], 11/12/2024 07:08:03 11/08/1911/12/2024 MATER NIT21 PLUS CORE sex KOBY Pérez Consi stent with Male Not Available [facility] ([facility]) [address] [place], [address], 11/12/2024 07:08:03 11/08/1911/12/2024 MATER NIT21 PLUS CORE negative predictive value NOTE The Negat davey Predi ctive Value (NPV) for triso my 21, 18, and 13 is great er than 99%. The NPV for SCA and ESS canno t be calcu lated as SCA and ESS are only repor darrian when an abnor malit y is detec darrian. Not Available [facility] ([facility]) [address] [place], [address], 11/12/2024 07:08:03 11/08/19 25 11/12/2024 MATER NIT21 PLUS CORE positive predictive value N/A Not Available [facility] ([facility]) [address] [facility], [place], [address], 11/12/2024 07:08:03 11/08/19 25 11/12/2024 MATER NIT21 PLUS CORE about the test COMMEN T The Mater niT(R ) 21 PLUS labor atory -deve loped test (LDT) grayson zes circu latin g cell- free DNA from a mater nal blood sampl e. This test is used for scree christopher purpo ses and not diagn ostic . Clini marisela corre latio n is recom teresa d. Valid ation data on twin pregn ancie s is limit ed and the abili ty of this test to detec t aneup loidy in highe r multi ple gesta tions has not yet been valid ated. Not Available [facility] ([facility]) [address] [facility], [place], [address], 11/12/2024 07:08:03 11/08/19 25 11/12/2024 MATER NIT21 PLUS CORE test method COMMEN T See Notes Circu latin g cell- free DNA was purif ied from the plasm a compo nent of mater nal blood . The extra cted DNA was then conve rted into a [employer] blair ry for aneup loidy grayson sis of chrom osome s 21, 18, and 13 via next gener ation seque ncing .[1] Optio nal findi ngs based on the test order inclu de sex chrom osome aneup loidy (SCA) [2], and enhan yan seque ncing serie s (ESS) [3], which will only be repor darrian on as an addit ional findi ng when an abnor malit y is detec darrian. SCA testi ng inclu ashlee infor matio n on X and Y repre senta tion, while ESS testi ng inclu ashlee delet ions in selec darrian regio ns (22q, 15q, 11q, 8q, 5p, 4p, 1p) and triso my of chrom osome s 16 and 22. Not Available [facility] ([facility]) [address] [facility], [place], [address], 11/12/2024 07:08:03 11/08/1911/12/2024 MATER NIT21 PLUS CORE performance COMMEN T The perfo rmanc e hugo cteri stics of the Mater niT(R ) 21 PLUS labor atory -deve loped test (LDT) have been deter mined in a clini marisela valid ation study with pregn ant women at incre ased risk for chrom osoma l aneup loidy .[1-4 ] Not Available [facility] ([facility]) [address] [facility], [place], [address], 11/12/2024 07:08:03 11/08/1911/12/2024 MATER NIT21 PLUS CORE performance characterist ics NOTE ----- ----- ----- ----- ----- ----- ----- ----- ----- ----- ----- ---- ! Sex ! Accur acy: 99.4% ! !---- ----- ----- ----- ----- ----- ----- ----- ----- ----- ----- ---! ! Regda n (altagracia hinds d syndr ome) ! Est. Sens# ! Est. Spec ! !---- ----- ----- ----- ----- ----- ----- ----- ----- ----- ----- ---! ! Triso my 21 (Down Syndr ome) ! 99.1% ! 99.9% ! !---- ----- ----- ----- ----- ----- ----- ----- ----- ----- ----- ---! ! Jose Eliaso my 18 (Edwa rds Syndr ome) ! >99.9 % ! 99.6% ! !---- ----- ----- ----- ----- ----- ----- ----- ----- ----- ----- ---! ! Gurinder my 13 (Pata u Syndr ome) ! 91.7% ! 99.7% ! !---- ----- ----- ----- ----- ----- ----- ----- ----- ----- ----- ---! ! Sex Chrom osome Aneup jacque es## ! 96.2% ! 99.7% ! !---- ----- ----- ----- ----- ----- ----- ----- ----- ----- ----- ---! * As repor darrian in ISCA datab ase nstd3 7 [http s://w yash.nc bi.nl .[facility] .gov/ dbvar /stud ies/n std37 / ] # Estim ated Sensi tivit y. Sensi tivit y estim ated acros s the obser true size distr ibuti on of each syndr ome [per ISCA datab ase nstd3 7] and acros s the range of fract ions obser true in routi ne clini marisela NIPT. Actua l sensi tivit y can also be influ enced by other facto rs such as the size of the event , total seque nce count s, ampli ficat ion bias, or seque nce bias. ## Singl eton gesta tion only. Not Available [facility] ([facility]) [address] [facility], [place], [address], 11/12/2024 07:08:03 11/08/1911/12/2024 MATER NIT21 PLUS CORE limitations of the test COMMEN T While the resul ts of these tests are highl y relia ble, disco rdant resul ts, inclu ding inacc urate sex predi ction , may occur due to place ntal, mater nal, or mosai cism or neopl asm; vanis eric twin; prior mater nal organ trans plant ; or other cause s. These tests are scree christopher tests and not diagn ostic ; they do not repla ce the accur acy and preci shaniqua of prena cheikh diagn osis with [facility] or amnio cente sis. A patie nt with a posit davey test resul t shoul d be refer red for monserrat ic couns eling and offer ed invas davey prena cheikh diagn osis for confi rmati on of test resul ts.[5 ] The resul ts of this testi ng, inclu ding the benef its and limit ation s, shoul d be discu ssed with a quali fied healt hcare provi elo. Pregn stacia manag ement decis ions, inclu ding termi natio n of the pregn stacia, shoul d not be based on the resul ts of these tests alone . The healt hcare provi elo is respo nsibl e for the use of this infor matio n in the manag ement of their patie nt. Sex chrom osoma l aneup loidi es are not repor table for known multi ple gesta tions . A negat davey resul t does not ensur e an unaff ected pregn stacia nor does it exclu de the possi bilit y of other chrom osoma l abnor malit ies or defec ts which are not a part of these tests . An uninf ormat davey resul t may be repor darrian, the cause s of which may inclu de, but are not limit ed to, insuf ficie nt seque ncing cover age, noise or artif acts in the regio n, ampli ficat ion or seque ncing bias, or insuf ficie nt fract ion. These tests are not inten ded to ident jeannie pregn ancie s at risk for neura l tube defec ts or ventr al wall defec ts. Testi ng for whole chrom osome abnor malit ies (incl uding sex chrom osome s) and for subch romos omal abnor malit ies could lead to the poten tial disco very of both and mater nal genom ic abnor malit ies that could have major , minor , or no, clini marisela signi fican ce. Evalu ating the signi fican ce of a posit davey or a non-r eport able resul t may invol ve both invas davey testi ng and addit ional studi es on the mothe r. Such inves tigat ions may lead to a diagn osis of mater nal chrom osoma l or subch romos omal abnor malit ies, which on occas ion may be assoc iated with benig n or malig nant mater nal neopl asms. These tests may not accur ately ident jeannie tripl oidy, blu yan rearr angem ents, or the preci se locat ion of subch romos omal dupli catio ns or delet ions; these may be detec darrian by prena cheikh diagn osis with [facility] or amnio cente sis. The abili ty to repor t resul ts may be impac darrian by mater nal BMI, mater nal weigh t, mater nal syste dyan lupus eryth emato sarah (SLE) and/o r by certa in pharm aceut ical agent s such as low molec ular weigh t hepar in (for examp le: Loven ox(R) , Xapar in(R) , Clexa ne(R) and Fragm in(R) ). Not Available [facility] ([facility]) [address] [facility], [place], [address], 11/12/2024 07:08:03 11/08/19 25 11/12/2024 MATER NIT21 PLUS CORE note COMMEN T See Notes Jenni Rhodes. is a subsi diary of Labor atory Corpo ratio n of [employer], using the brand [employer]. This test was devel oped and its perfo rmanc e hugo cteri stics deter mined by [employer]. It has not been clear ed or appro true by the Food and Drug Admin istra tion. This labor atory is certi fied under the Clini marisela Labor atory Impro vemen t Amend ments (CLIA ) as quali fied to perfo rm high compl exity clini marisela labor atory testi ng and accre dited by the Nelson watkins of [facility] [employer] (CAP) . If there is futur e clini marisela need for addin g Mater niT GENOM E testi ng, this speci men will be avail able until term. [facility] sampl es will not be retai irma beyon d 60 days. [facility] patie nts will have to send a new sampl e for re-se quenc ing ([facility] Test Code: 86807 4). Not Available [facility] ([facility]) [address] [facility], [place], [address], 11/12/2024 07:08:03 11/08/1911/12/2024 MATER NIT21 PLUS CORE references COMMEN T 1. Valerie WATKINS, et al. Monserrat Med. 2012; 14(3) :296- 305. 2. Minerva ANTOINE, et al. Prena t Diag. 2013; 33(6) :591- 597. 3. Rakan C, et al. Clin Chem. 2015 Jan;6 1(4): 608-6 16. 4. Valerie WATKINS, et al. Monserrat Med. 2011; 13(11 ):913 -920. 5. ACOG/ SMFM Pract ice Bulle tin No. 226, Jul 2020. Not Available [facility] ([facility]) [address] [facility], [place], [address], 11/12/2024 07:08:03 11/08/1911/12/2024 MATER NIT21 PLUS CORE pdf . Not Available [facility] ([facility]) [address] [facility], [place], [address], 11/12/2024 07:08:03 11/08/19 25 11/08/2024 edinb urgh postn atal depre ssion scale * Score 1 Not Available In-Office Order Internal Use Only DO Not Attach Compendium DO Not Attach Compendium, Do Not Delete/merge, 11/08/2024 11:10:10 12/12/1912/12/2024 urina lysis , dipst ick Leukocytes Negati ve Not Available In-Office Order Internal Use Only DO Not Attach Compendium DO Not Attach Compendium, Do Not Delete/merge, 12/11/2024 14:13:00 12/12/1912/12/2024 urina lysis , dipst ick Nitrite negati ve Not Available In-Office Order Internal Use Only DO Not Attach Compendium DO Not Attach Compendium, Do Not Delete/merge, 12/11/2024 14:13:00 12/12/1912/12/2024 urina lysis , dipst ick Urobilinogen .2 Not Available In-Of fice Order Internal Use Only DO Not Attach Compendium DO Not Attach Compendium, Do Not Delete/merge, 12/11/2024 14:13:00 12/12/1912/12/2024 urina lysis , dipst ick Protein Negati ve Not Available In-Office Order Internal Use Only DO Not Attach Compendium DO Not Attach Compendium, Do Not Delete/merge, 12/11/2024 14:13:00 12/12/1912/12/2024 urina lysis , dipst ick pH 6.0 Not Available In-Office Order Internal Use Only DO Not Attach Compendium DO Not Attach Compendium, Do Not Delete/merge, 12/11/2024 14:13:00 12/12/1912/12/2024 urina lysis , dipst ick Blood Negati ve Not Available In-Office Order Internal Use Only DO Not Attach Compendium DO Not Attach Compendium, Do Not Delete/merge, 12/11/2024 14:13:00 12/12/1912/12/2024 urina lysis , dipst ick Specific Donald 1.015 Not Available In-Off ice Order Internal Use Only DO Not Attach Compendium DO Not Attach Compendium, Do Not Delete/merge, 12/11/2024 14:13:00 12/12/19 25 12/12/2024 urina lysis , dipst ick Ketone Negati ve Not Available In-Office Order Internal Use Only DO Not Attach Compendium DO Not Attach Compendium, Do Not Delete/merge, [id number] 12/11/2024 14:13:00 12/12/19 25 12/12/2024 urina lysis , dipst ick Bilirubin Negati ve Not Available In-Office Order Internal Use Only DO Not Attach Compendium DO Not Attach Compendium, Do Not Delete/merge, [id number] 12/11/2024 14:13:00 12/12/19 25 12/12/2024 urina lysis , dipst ick Glucose Negati ve Not Available In-Office Order Internal Use Only DO Not Attach Compendium DO Not Attach Compendium, Do Not Delete/merge, [id number] 12/11/2024 14:13:00 01/06/20 25 01/05/2025 urina lysis , dipst ick Protein Trace Not Available In-Office Order Internal Use Only DO Not Attach Compendium DO Not Attach Compendium, Do Not Delete/merge, [id number] 01/02/2025 16:28:59 01/06/20 25 01/05/2025 urina lysis , dipst ick Glucose Negati ve Not Available In-Office Order Internal Use Only DO Not Attach Compendium DO Not Attach Compendium, Do Not Delete/merge, [id number] 01/02/2025 16:28:59 11/11/19 25 11/10/2024 US, obste tric, 1st trime ster No observ ation record ed. [email or web address] [facility] (Scheduling) [address] [place], [address], 11/13/2024 11:34:04 11/15/19 25 11/14/2024 US, obste tric, 1st trime ster No observ ation record ed. PAIGE [facility] (Scheduling) [address] [facility], [place], [address], 11/15/2024 12:31:19 11/22/19 25 11/22/2024 US, obste tric, 1st trime ster No observ ation record ed. (Scheduling) [address], [place], [address], 11/23/2024 10:07:48 12/12/19 25 11/30/2024 XR, chest No observ ation record ed. [email or web address] Not Available 2024 15:38:53 01/05/20 25 12/25/2024 US, obste tric, mater nal evalu ation + anato my No observ ation record ed. (Scheduling) [address], [place], [address], 01/04/2025 10:09:53 Result Notes None recorded. Problems Name Problem SNOMED Code Status Onset Date Resolution Date Notes Provider Name and Address Organization Details Recorded Time 94207840 Completed 201810/19/2019 Mar Metzger RMA null, [place] - [facility] 5 10:50:11 Microscopi c hematuria 904980061 Active 2019 Mar Metzger, R[place] [facility] 4 13:53:30 Systemic inflammato ry response syndrome 464327811 Active 2023 Mar Metzger, [place] [facility] 4 13:53:30 Dyspnea 071815908 Active Mar Metzger, [place] [facility] 4 13:53:30 Community acquired pneumonia 435404648 Active 2019 Mar Metzger, [place] [facility] 4 13:53:30 Hypoxemia 015483897 Active Mar Metzger, [place] [facility] 4 13:53:30 Smoker 48831207 Active 2019 Mar Metzger, [place] [facility] 4 13:53:30 Sciatica 58869853 Active Mar Metzger, [place] [facility] 4 13:54:21 05229803 Active 2024 Mar Metzger R[place] [facility] 5 10:50:11 Polyuria 68121338 Active Mar Metzger R[place] [facility] 2 16:52:46 Problem Notes None recorded. Procedures Surgical History Date Name Laterality Status Provider Name and Address Organization Details Recorded Time 07/19/20 24 Control Implant Removal completed GIOVANNI Hardy Attn: Accounting, [address] [place], [address], [place] [facility] 07/19/2024 14:23:10 07/19/20 24 Date of Last Pap Smear completed Velvet Mcgregor RN PA - [facility] 07/25/2024 11:30:17 08/24/20 23 Control Implant Insertion completed GIOVANNI Hardy Attn: Accounting, [address] [place], [address], [facility] - [facility] 08/24/2023 15:53:22 10/19/19 20 Suture/Staple removal completed Barry Philip MD Attn: Accounting, [address] [place], [address], [place] [facility] 10/19/2019 12:10:27 Cholecystectomy completed Alyssia Landin MA PA - [facility] 09/02/2015 15:41:43 Imaging Results Imaging Date Name Status LastModified by Organiz ation Details LastModified Time 11/10/2024 US, obstetric, 1st trimester completed lakisha [facility] (Scheduling) [address] [place], [address], 11/13/2024 11:34:04 11/14/2024 US, obstetric, 1st trimester completed (Scheduling) [address] [place], [address], 11/15/2024 12:31:19 11/22/2024 US, obstetric, 1st trimester completed (Scheduling) [address] [place], [address], 11/23/2024 10:07:48 11/30/2024 XR, chest completed [email or web address] Information no t available 12/12/2024 15:38:53 12/25/2024 US, obstetric, maternal evaluation + anatomy completed ([facility]) [address], [place], [address], 01/04/2025 10:09:53 Procedure Notes None recorded. Medical Equipment None Reported. Allergies Allergen ID Allergen Name Allergen Category Reaction Reaction Severity Criticality Documentation Date Start Date Code Code System Note Provider Name and Address Organization Details Recorded Time 909290 No known allergy (situatio n) Not available Not available Not available Not available 07/10/2024 12053 6003 SNOMED Not Available Not Available Not Available No known drug allergies Medications Name Sig Start Date Stop Date Status Note LastModified by Organization Details LastModified Time doxycycline hyclate 100 mg capsule 11/08 completed Not Available Not Available Not Available clindamycin HCl 300 mg capsule TAKE 1 CAPSULE BY MOUTH EVERY 6 HOURS FOR 14 DAYS 11/08 completed Not Available Not Available Not Available ibuprofen 800 mg tablet TAKE 1 TABLET BY MOUTH THREE TIMES DAILY NEEDED FOR PAIN active Not Available Not Available No t Available cephalexin 250 mg capsule 04/15 completed Not Available Not Available Not Available hydrocodone 5 mg-acetamin ophen 325 mg tablet 04/15 completed Not Available Not Available Not Available metronidazo le 500 mg tablet 07/10 completed Not Available Not Available Not Available acyclovir 400 mg tablet Take 1 tablet every day by oral route for 30 days. 04/15 completed Not Available Not Available Not Available valacyclovi r 500 mg tablet TAKE 1 TABLET BY MOUTH EVERY DAY 04/15 completed Not Available Not Available Not Available sulfamethox azole 800 mg-trimetho prim 160 mg tablet TAKE 1 TABLET BY MOUTH EVERY 12 HOURS FOR 10 DAYS 08/15 completed Not Available Not Available Not Available tramadol 50 mg tablet TAKE 1 TABLET BY MOUTH EVERY 4 HOURS NEEDED FOR PAIN 08/24 completed Not Available Not Available Not Available acyclovir 800 mg tablet TAKE 1 TABLET BY MOUTH FIVE TIMES DAILY FOR 5 DAYS 10/15 completed Not Available Not Available Not Available amoxicillin 875 mg tablet TAKE 1 TABLET BY MOUTH EVERY 12 HOURS FOR 10 DAYS 11/08 completed Not Available Not Available Not Available clindamycin 1 % topical gel APPLY THIN LAYER TOPICALLY TO THE AFFECTED AREA TWICE DAILY 11/08 completed Not Available Not Available Not Available cephalexin 500 mg capsule TAKE 1 CAPSULE BY MOUTH TWICE DAILY FOR FIVE DAYS 01/05 completed Not Available Not Available Not Available diphenhydra mine 25 mg capsule Take 25 mg by oral route. 04/15 completed Not Available Not Available Not Available lidocaine 5 % topical patch APPLY 1 PATCH TOPICALLY TO THE SKIN EVERY DAY. MAY WEAR UP TO 12 HOURS 08/24 completed Not Available Not Available Not Available gabapentin 300 mg capsule TAKE 1 CAPSULE BY MOUTH FOUR TIMES DAILY NEEDED 08/24 completed Not Available Not Available Not Available methylpredn isolone 4 mg tablets in a dose pack USE PER PACKAGE DIRECTION S 10/15 completed Not Available Not Available Not Available albuterol sulfate HFA 90 mcg/actuati on aerosol inhaler INHALE 2 PUFFS BY MOUTH EVERY 4 HOURS active Not Available Not Available No t Available ketorolac 60 mg/2 mL intramuscul ar solution Inject 2 mL every day by intramusc ular route. 10/28 completed Not Available Not Available Not Available amoxicillin 875 mg-potassiu m clavulanate 125 mg tablet TAKE 1 TABLET BY MOUTH EVERY 12 HOURS FOR 10 DAYS 10/15 completed Not Available Not Available Not Available azithromyci n 500 mg tablet TAKE 1 TABLET BY MOUTH EVERY DAY FOR 3 DAYS 10/15 completed Not Available Not Available Not Available cyclobenzap rine 5 mg tablet TAKE 1 TABLET BY MOUTH THREE TIMES DAILY NEEDED FOR MUSCLE SPASM 10/15 completed Not Available Not Available Not Available nitrofurant oin monohydrate /macrocryst als 100 mg capsule 08/24 completed Not Available Not Available Not Available Nexplanon 68 mg subdermal implant Inject 1 implant by subcutane ous route. 2022 active Not Available Not Available Not Avai lable Vitals Date Recorded Body height Body mass index (BMI) Body weight Oxygen saturation Oxygen saturation in Arterial blood by Pulse oximetry Heart rate Systolic blood pressure Diastolic blood pressure Provider Name and Address Organization Details Last Updated DateTime 4 163.83 cm 35.7 kg/m2 74895.9 9 g 99 % 99 % 86 /min 109 mm[Hg] 77 mm[Hg] Perri Abbasi MA [facility] 4 17:35:40 Date Recorded Body height Body mass index (BMI) Body weight Systolic blood pressure Diastolic blood pressure Provider Name and Address Organization Details Last Updated DateTime 11/08/2024 163.83 cm 37.9 kg/m2 792423.1 2 g 123 mm[Hg] 62 mm[Hg] Mar Metzger [facility] 5 11:07:57 Date Recorded Body height Body mass index (BMI) Body weight Systolic blood pressure Diastolic blood pressure Provider Name and Address Organization Details Last Updated DateTime 11/21/2024 163.83 cm 37.7 kg/m2 816872.2 4 g 126 mm[Hg] 76 mm[Hg] Mar Metzger [facility] 5 14:05:06 Date Recorded Body height Body mass index (BMI) Body weight Systolic blood pressure Diastolic blood pressure Provider Name and Address Organization Details Last Updated DateTime 12/12/2024 163.83 cm 36.8 kg/m2 24081.28 g 133 mm[Hg] 84 mm[Hg] Mar Metzger [facility] 5 15:31:49 Date Recorded Body height Body mass index (BMI) Body weight Heart rate Systolic blood pressure Diastolic blood pressure Provider Name and Address Organization Details Last Updated DateTime 5 163.83 cm 36.9 kg/m2 95237.5 7 g 92 /min 112 mm[Hg] 72 mm[Hg] Charo Delvalle [facility] 5 10:49:23 Social History Question Answer Notes LastModified by Organizat ion Details LastModified Time Tobacco Smoking Status Current Every Day Smoker Alyssia Landin MA [facility] 09/02/2015 15:41:43 What Is Your Level Of Alcohol Consumption? Occasional Information not available 04/15/2021 What Is Your Level Of Caffeine Consumption? Moderate Information not available 04/15/2021 In The 14 Days Before Symptom Onset, Have You Had Close Contact With A Laboratory-confir med COVID-19 While That Case Was Ill? No Information not available 04/15/2021 In The 14 Days Before Symptom Onset, Have You Had Close Contact With A Person Who Is Under Investigation For COVID-19 While That Person Was Ill? No Information not available 04/15/2021 Have You Been To An Area Known To Be High Risk For COVID-19? No Information not available 04/15/2021 Are You Currently Employed? No Information not available 04/15/2021 What Type Of Diet Are You Following? REGULAR Information not available 04/15/2021 Do You Or Have You Ever Used E-cigarettes Or Vape? Current User Of Electronic Cigarettes [email or web address] Information not available 07/19/2024 What Was The Date Of Your Most Recent Tobacco Screening? 01/05/2025 Information not available 01/05/2025 What Is Your Relationship Status? Information not available 04/15/2021 Are You Sexually Active? No [email or web address] Information not available 08/24/2023 Do You Have Smoke And Carbon Monoxide Detectors In Your Home? Yes Information not available 04/15/2021 Are You Passively Exposed To Smoke? Yes Information no t available 04/15/2021 How Much Tobacco Do You Smoke? 1 PPD [email or web address] Information not available 07/19/2024 Do You Feel Stressed (tense, Restless, Nervous, Or Anxious, Or Unable To Sleep At Night)? [id number] Information not available 10/15/2021 Do You Use Any Illicit Or Recreational Drugs? No Information not available 04/15/2021 Has Tobacco Cessation Counseling Been Provided? Yes Information not available 04/15/2021 On What Date Was Tobacco Cessation Counseling Provided? 01/05/2025 Information not available 01/05/2025 How Many Years Have You Smoked Tobacco? 13 [email or web address] Information not available 05/10/2019 Do You Or Have You Ever Used Any Other Forms Of Tobacco Or Nicotine? Yes [email or web address] Information not available 07/19/2024 Sex: Female Functional Status Question Answer Note LastModified by Organization D etails LastModified Time Are you able to care for yourself? Yes Information n ot available 04/15/2021 Mental Status None recorded. Family History Relationship Description Onset Age of this Age Resolved Age Notes LastModified by Organization Details LastModified Time Mother Depressive disorder [email or web address] Not available 2014 14:45:00 Mother Diabetes mellitus [email or web address] Not available 2014 14:45:00 Mother Hypertensive disorder [email or web address] Not available 2014 14:45:00 Mother Hyperlipidem ia [email or web address] Not available 2014 14:45:00 Mother Kidney disease [email or web address] Not available 2014 14:45:00 Mother Osteoporosis Not availa ble 09/11/2015 14:45:00 Sister Depressive disorder [email or web address] Not available 2014 14:45:00 Sister Diabetes mellitus [email or web address] Not available 2014 14:45:00 Sister Heart disease [email or web address] Not available 2014 14:45:00 Sister Hypertensive disorder [email or web address] Not available 2014 14:45:00 Sister Migraine Not available 09/11/2015 14:45:00 Sister Malignant tumor of ovary [email or web address] Not available 2014 14:45:00 Brother Asthma [email or web address] Not available 1 11/11/2014 14:45:00 Medical History Condition Response Coronary Artery Disease N Other Y Atrial Fibrillation N High Blood Pressure N Breast Cancer N Thyroid Problems N Kidney or Bladder Problems N Lung Disease N Depression N COPD N Blood Clots N GI Problems N Breast Problem N Skin Problems N Eating Disorder N Anemia N Heart Attack (SD) N Headaches/Migraines N Anxiety Disorder N Ovarian Cancer N Diabetes N Muscle, Joint, or Bone Problems N Blood Transfusions N Seizures/Epilepsy N Polyps N Infertility N Acid Reflux (GERD) N Cancer N Stroke N Abuse/Domestic Violence N Asthma N Allergies N Endometriosis N High Cholesterol N Hepatitis N Liver Disease N Heart Disease N Headaches N Pre-Eclampsia N Osteoporosis N Heart Failure N Gynecological History Statement/Question Response Flow Heavy Date of LMP 08/15/2024 Menses Monthly Yes STIs/STDs Y Date of Last Pap Smear 07/19/2024 Age at Menarche 14 Current Control Method Age at First Child 17 LMP Approximate Obstetrics History GPAL:G 6 P 2 1 2 3 Type Value Full Term 2 Spontaneous 2 Premature 1 Living 3 Total 6 Immunizations Vaccine Type Date Status Note Provider Nam e and Address Organization Details Recorded Time Tdap 9 completed Mar Metzger R[place], [place] [facility] 07/10/2024 13:53:35 Influenza, split virus, quadrivalent, PF 9 completed Mar Mtezger [place] [facility] 11/08/2024 10:58:38 COVID-19, mRNA, LNP-S, PF, 30 mcg/0.3 mL dose 1 completed Mar Metzger, [place] [facility] 07/10/2024 13:52:29 COVID-19, mRNA, LNP-S, PF, 30 mcg/0.3 mL dose 1 completed Mar Metzger, [place] [facility] 07/10/2024 13:52:29 Influenza, split virus, quadrivalent, preservative 2 completed Leelee Philip [place], [place] [facility] 10/28/2021 16:24:08 Influenza, split virus, trivalent, preservative 5 completed Not Available [facility] 11/04/2019 02:44:17 Past Encounters Encounter ID Performer Location Encounter Start Date Encounter Closed Date Diagnosis/Indication Diagnosis SNOMED-CT Code Diagnosis ICD10 Code Diagnosis Note [id number] Travis Barnett PA-C [facility] [address] [place] [address] 09/02/2015 15:33:34 09/02/2015 16:04:04 Polyuria 79970136 R35.8 [id number] Travis Barnett PA-C [facility] [address] [place] [address] 09/11/2015 14:39:46 09/13/2015 09:37:02 Polyuria 62259516 R35.8 [id number] MD Ema Rhodes [address] [place] [address] 05/10/2019 10:40:41 05/11/2019 09:48:15 Normal 82340924 Z34.81 Advanced m aternal age 983751507 O09.769 [id number] MD Ema Rhodes [address] [place] [address] 06/08/2019 10:39:03 06/09/2019 11:46:37 Normal 47185873 Z34.81 Multigravi da of advanced maternal age 713178501 O09.658 [id number] MD Ema Rhodes [address] [place] [address] 06/29/2019 10:51:29 06/29/2019 16:00:13 Normal 40304024 Z34.81 [id number] MD Ema Rhodes [address] [place] [address] 07/20/2019 11:28:31 07/21/2019 10:06:55 Normal [id number] Z34.81 [id number] MD Ema Rhodes [address] [place] [address] 08/10/2019 10:22:19 08/11/2019 12:40:25 Normal 45141888 Z34.81 Advanced m aternal age 408725758 O09.674 [id number] MD Ema Rhodes [address] [place] [address] 08/31/2019 10:49:09 08/31/2019 16:23:52 Normal [id number] Z34.81 [id number] MD Ema Rhodes 12 [address] [place] [address] 09/18/2019 11:38:20 09/19/2019 10:02:08 Normal 74222985 Z34.81 Vaginal discharge 215691 006 N89.8 [id number] MD Ema Rhodes [address] [place] [address] 10/05/2019 15:38:27 10/06/2019 16:28:26 Normal [id number] Z34.81 [id number] MD Ema Rhodes [address] [place] [address] 10/19/2019 11:17:53 10/20/2019 16:09:48 Removal of aurelia 29564320 Z48.02 Wound cellulitis 7216991 03 L03.90 [id number] MD Ema Rhodes [address] [place] [address] 04/12/2020 09:46:20 04/15/2020 11:31:16 Contraception care management 177868598 Z30.9 Sterilizat ion requested [id number] Z30.2 [id number] Travis Barnett PA-C [facility] [address] [place] [address] 04/15/2021 09:40:08 04/15/2021 16:20:39 Acute bronchitis with bronchospasm 36534050 J20.9 [id number] Travis Barnett PA-C [facility] [address] [place] [address] 10/15/2021 15:48:00 10/15/2021 16:55:36 Lumbar radiculopathy 429157613 M54.16 [id number] Travis Barnett PA-C [facility] [address] [place] [address] 10/28/2021 15:43:01 11/04/2021 08:29:42 Active or passive immunization 319085924 Z23 Body mass index 30+ - obesity 940086186 Z68.39 Pain of le ft knee region 5517520724 18899 M25.785 [id number] GIOVANNI Hardy [place] [address] [place] [address] 08/24/2023 15:00:58 08/25/2023 10:18:48 Obesity 268671462 E66.9 Discussed diet and weight loss. Discussed making healthier food choices and increasing exercise. Discussed going to a heel seat sander. Smoker 51745596 F17.200 smoking cessation informatio n give. pt understand s the risk factors associated with smoking including heart disease, blood clots, stroke and increase risks for cancers. Insertion of subcutaneous contraceptive 694450248 Z30.46 1. All forms of control reviewed with patient including risks, benefits, pros and cons. 2. Patient verbalized understand ing of all forms and that abstinence is the only true form of control. 3. Condom use reviewed as well and prevention and transmissi on of STD's. 4. Nexplanon inserted without issue. Pt educated on side effects. 5. Will follow up in 3 months for med check, sooner if needed. [id number] LUDIVINA [facility]ka [address] [place] [address] 12/02/2023 10:59:29 12/03/2023 16:28:47 Acute urinary tract infection 257646660 N39.0 Liver cyst 52387674 K76. 89 Acute bron chitis with bronchospasm 36386835 J20.8 Overweight 506078136 E66 .3 [id number] Barry Philip MD [place] [address] [place] [address] 07/10/2024 13:44:18 07/11/2024 11:24:15 Infection by Trichomonas 76642243 A59.9 Contracept ion care management 523644525 Z30.9 [id number] Sara Hurtado [facility]- Ema [address] [place] [address] 07/19/2024 14:12:25 07/24/2024 10:52:09 Removal of subcutaneous contraceptive 165160694 Z30.46 Nexplanon removed without issue. Pt verbalizes that fertility will resume and if trying to become , she needs to begin vits now. Pt verbalized understand ing. Pt will follow up as needed for annual, sooner if needed or if pt would like new form of control. Gynecologi c examination 59536899 Z01.419 1. Counseled regarding prevention of STD's , condom use and prevention . 2. Counseled regarding contracept davey options, risk factors and side effects. 3. Advised avoidance of tobacco, alcohol, and drugs . 4. Counseled regarding folic acid supplement ation, calcium needs and prevention of osteoporos is . 5. BSE reviewed and recommende d. 6. Follow up in one year or sooner if needed. [id number] LUDIVINA Mak [address] [place] [address] 08/15/2024 17:19:28 08/17/2024 09:59:17 Axillary hidradenitis suppurativa 126739464 L73.2 [id number] MD Ema Rhodes [address] [place] [address] 11/08/2024 10:46:57 11/13/2024 13:44:03 Normal 57092414 Z34.81 Early stag e of 724259456 Z34.91 Past pregn stacia history of section 064496293 Z98.890 Advanced m aternal age 723972613 O09.521 Tobacco sm oking in mother complicating 3605927550 34045 O99.191 [id number] MD Ema Rhodes [address] [place] [address] 11/21/2024 13:41:34 11/27/2024 14:35:06 Threatened miscarriage 06918340 O20.0 [id number] MD Ema Rhodes [address] [place] [address] 12/12/2024 15:00:14 12/15/2024 12:28:03 Normal 35029247 Z34.81 Advanced m aternal age 536318774 O09.374 [id number] MD Ema hRodes [address] [place] [address] 01/05/2025 10:33:36 01/05/2025 11:22:46 Normal 64092382 Z34.82 Obesity 018514704 E66.9 Smoker 71803635 F17.200 Advanced m aternal age 320035018 O09.521 Past pregn stacia history of section 832340575 Z98.890 Health Concerns Section Related Observation LastModified by Organization Detai ls LastModified Time None Recorded Concern Status LastModified by Organization Details LastModified Time None Recorded Advance Directives Directive None Recorded Payers Encounter Date Sequence Insurance Name Policy Number Policy Spencer Covered Member ID Spencer Member ID Guarantor Name 08/15/2024 1 [facility] ON OR AFTER 04/17/21 (MEDICAID REPLACEMENT - HMO) Gela Hu [id number] Gela Hu 11/08/2024 1 [facility] ON OR AFTER 04/17/21 (MEDICAID REPLACEMENT - HMO) Gela Hu [id number] Gela Hu 11/21/2024 1 [facility] ON OR AFTER 04/17/21 (MEDICAID REPLACEMENT - HMO) Gela Mayte [id number] Gela Mayte 12/12/2024 1 [facility] ON OR AFTER 04/17/21 (MEDICAID REPLACEMENT - HMO) Gela Mayte [id number] Gela Mayte 01/05/2025 1 [facility] ON OR AFTER 04/17/21 (MEDICAID REPLACEMENT - HMO) Gela Hu [id number] Gela Hu Notes Date Note Type Note Provider Name and Address Organization Details Recorded Time 08/15/2024 text/html recurrence of axillary boils and also around groin..painful..b actrim did not move it Travis Barnett PA-C Attn: Accounting,[address] [place], [address], [facility] 08/15/2024 17:58:31 OBGyn Episode Ob Episode Information Episode Created Date Number of Fetuses Patient Bloodtype Patient rh Status Prepregnancy Weight lbs Domestic Partner Domestic Partner Phone Father Name Bulb Filler Status 11/08/19 25 1 A Positive OPEN Fetus Data First Name Last Name Admitted to NICU Weight (g) Sex Living Outcome Pediatric Complications Fetus ID Race Codes Race Delivery Type [id number] Rustam Calculation Initial Rustam Date Initial Exam Date Initial Exam Provider Initial Ultrasound Date Last Menstrual Period Date Ultra Sound Weeks Gestation 05/12/2025 11/08/2024 11/10/2024 08/16/2024 13 Eighteen To Twenty Week Rustam Update Ultra Sound Date Fundal Height At Umbil Quickening Date Ultra Sound Latest Weeks Gestation Final Rustam Confirmed By Final Rustam Confirmed Date Final Rustam Date Ultra Sound Latest Days Gestation 0 05/12/20 25 0 Pre-bairon Flowsheet Flowsheet Date 11/08/2024 Campo Score Blood Edema Fundus Height Fundus Units Glucose Ketones Leukocytes Nitrite Labor Signs Protein Cervic Dilation Cervic Effacement Cervic Station Type Weight in lbs Pre/Post Dialysis Refused With clothes 224.801374293875 BP Diastolic BP Location Tested BP Systolic BP Type 62 L arm 123 sitting Fetus Heart Rate Present Fetus Movement Comments Patient just had her nexplan on removed last July, says she found she was on gi. Would put her around 12 weeks currently. No FHTs in office today ; will get early US.LAst had an abruption at 35 weeks and had an emergency c/s. Will plan a repeat this time. ( likely with a BTL)We have scheduled her for a BTL 3 different time in past but she always cancelled them.Advanced maternal age, heavy smoking, and history of abruption will probably deserve a HROB consult at some point. Flowsheet Date 11/21/2024 Campo Score Blood Edema Fundus Height Fundus Units Glucose Ketones Leukocytes Nitrite Labor Signs Protein Cervic Dilation Cervic Effacement Cervic Station Type Weight in lbs Pre/Post Dialysis Refused With clothes 223.531773732883 BP Diastolic BP Location Tested BP Systolic BP Type 76 R arm 126 sitting Fetus Heart Rate Present Fetus Movement [facility] +F[facility]S and 14 week .subchorionic hemorrage notedlengthy talk with patient today about sub chorionic hemorrhaedeclines pain meds at this timewill arrange another US at [place] this week Flowsheet Date 12/12/2024 Campo Score Blood Edema Fundus Height Fundus Units Glucose Ketones Leukocytes Nitrite Labor Signs Protein Cervic Dilation Cervic Effacement Cervic Station 18 wks none neg Type Weight in lbs Pre/Post Dialysis Refused With clothes 218.270050128717 BP Diastolic BP Location Tested BP Systolic BP Type 84 R arm 133 sitting Fetus Heart Rate Present A 146 Fetus Movement A No Comments Good FHTs in office todayNew EDC of 05/12/25 confirmed by last USrecent Flu A diagnosis has been hard on her.[place] 3 weeks Flowsheet Date 01/05/2025 Campo Score Blood Edema Fundus Height Fundus Units Glucose Ketones Leukocytes Nitrite Labor Signs Protein Cervic Dilation Cervic Effacement Cervic Station 21 cm none none trace Type Weight in lbs Pre/Post Dialysis Refused With clothes 218.111438485258 BP Diastolic BP Location Tested BP Systolic BP Type 72 R arm 112 sitting Fetus Heart Rate Present A 146 Fetus Movement A Yes Comments Anatomy uS was good, confirm ed EDC ( 05/18 vs 05/12)active babywill initiate a HROB consult for hx of abrubtionf/u 3 weeks Menstrual History Last Menstrual Date Menses Monthly On Bcp Conception Prior Menses Frequency Hcg Plus Date Menarche Onset Age 1008/16/2024 true Delivery Information Delivery Date Delivery Type Labor Anesthesia Weeks Gestation Incision Type Labor Labor Length Hrs Delivered By Post Complications Tubal Sterilization Discharge Date Comments Discharge Information Feeding Method Contraceptive Method Maternal HG B and HCT Levels Ob Episode Information Episode Created Date Number of Fetuses Patient Bloodtype Patient rh Status Prepregnancy Weight lbs Domestic Partner Domestic Partner Phone Father Name Bulb Filler Status 05/10/20 19 1 CLOSED Fetus Data First Name Last Name Admitted to NICU Weight (g) Sex Living Outcome Pediatric Complications Fetus ID Race Codes Race Delivery Type 2352.78 1704 F Full Term 31695 Vaginal Rustam Calculation Initial Rustam Date Initial Exam Date Initial Exam Provider Initial Ultrasound Date Last Menstrual Period Date Ultra Sound Weeks Gestation 0 Eighteen To Twenty Week Rustam Update Ultra Sound Date Fundal Height At Umbil Quickening Date Ultra Sound Latest Weeks Gestation Final Rustam Confirmed By Final Rustam Confirmed Date Final Rustam Date Ultra Sound Latest Days Gestation 0 0 Menstrual History Last Menstrual Date Menses Monthly On Bcp Conception Prior Menses Frequency Hcg Plus Date Menarche Onset Age Delivery Information Delivery Date Delivery Type Labor Anesthesia Weeks Gestation Incision Type Labor Labor Length Hrs Delivered By Post Complications Tubal Sterilization Discharge Date Comments [address] Cyr Discharge Information Feeding Method Contraceptive Method Maternal HG B and HCT Levels Ob Episode Information Episode Created Date Number of Fetuses Patient Bloodtype Patient rh Status Prepregnancy Weight lbs Domestic Partner Domestic Partner Phone Father Name Bulb Filler Status 05/10/20 19 1 A Positive CLOSED Fetus Data First Name Last Name Admitted to NICU Weight (g) Sex Living Outcome Pediatric Complications Fetus ID Race Codes Race Delivery Type Jose Olmedo false 1814.36 8 M true Prematur e [id number] White Rustam Calculation Initial Rustam Date Initial Exam Date Initial Exam Provider Initial Ultrasound Date Last Menstrual Period Date Ultra Sound Weeks Gestation 11/14/2019 05/10/2019 06/15/2019 02/07/2019 17 Eighteen To Twenty Week Rustam Update Ultra Sound Date Fundal Height At Umbil Quickening Date Ultra Sound Latest Weeks Gestation Final Rustam Confirmed By Final Rustam Confirmed Date Final Rustam Date Ultra Sound Latest Days Gestation 08/01/20 19 24 06/29/2019 11/14/19 20 5 Pre- Flowsheet Flowsheet Date 05/10/2019 Campo Score Blood Edema Fundus Height Fundus Units Glucose Ketones Leukocytes Nitrite Labor Signs Protein Cervic Dilation Cervic Effacement Cervic Station 12 wks 0cm 0% -4 Type Weight in lbs Pre/Post Dialysis Refused With clothes 204.151885400214 BP Diastolic BP Location Tested BP Systolic BP Type 76 108 sitting Fetus Heart Rate Present A 155 Present Fetus Movement Comments Both kids delivered by Dr HERNESTO gomez at , spontaneous labors, epidurals, didnt push long. Normal new OB exam today.Healthy other than dentition and smoking, discussed issues.Would be interested in BTL> Flowsheet Date 06/08/2019 Campo Score Blood Edema Fundus Height Fundus Units Glucose Ketones Leukocytes Nitrite Labor Signs Protein Cervic Dilation Cervic Effacement Cervic Station 17 wks Type Weight in lbs Pre/Post Dialysis Refused With clothes 198.238129099879 BP Diastolic BP Location Tested BP Systolic BP Type 85 128 sitting Fetus Heart Rate Present A 149 Present Fetus Movement Comments discussed HSV2+ - a surprise US next week, f/u here in 3 weeks Flowsheet Date 06/29/2019 Campo Score Blood Edema Fundus Height Fundus Units Glucose Ketones Leukocytes Nitrite Labor Signs Protein Cervic Dilation Cervic Effacement Cervic Station 20 wks Type Weight in lbs Pre/Post Dialysis Refused With clothes 200.955863244496 BP Diastolic BP Location Tested BP Systolic BP Type 75 116 sitting Fetus Heart Rate Present A 147 Present Fetus Movement A Yes Comments doing well, nausea improved. DAtes confirmed. Boy.US missed a few anatomy pics, will f/u After next visit in 3 weeks Flowsheet Date 07/20/2019 Campo Score Blood Edema Fundus Height Fundus Units Glucose Ketones Leukocytes Nitrite Labor Signs Protein Cervic Dilation Cervic Effacement Cervic Station none 23 wks Type Weight in lbs Pre/Post Dialysis Refused With clothes 196.001714013664 BP Diastolic BP Location Tested BP Systolic BP Type 68 102 sitting Fetus Heart Rate Present A 143 Present Fetus Movement A Yes Comments Doing OK, leg and foot cramp sactive baby, sugar test next timewill get f/u US pre-approved. ( elevated HC/AC ratio and missed anatomy) Flowsheet Date 08/10/2019 Campo Score Blood Edema Fundus Height Fundus Units Glucose Ketones Leukocytes Nitrite Labor Signs Protein Cervic Dilation Cervic Effacement Cervic Station 26 cm Type Weight in lbs Pre/Post Dialysis Refused With clothes 196.273573174900 BP Diastolic BP Location Tested BP Systolic BP Type 66 122 sitting Fetus Heart Rate Present A 140 Present Fetus Movement A Yes Comments Did sugar test today: said s he was goig to get a Mtn Dew next : explained avoidance of caffeine issues in .f/u US was good, no issues seen. Flowsheet Date 08/31/2019 Campo Score Blood Edema Fundus Height Fundus Units Glucose Ketones Leukocytes Nitrite Labor Signs Protein Cervic Dilation Cervic Effacement Cervic Station none 29 cm Type Weight in lbs Pre/Post Dialysis Refused With clothes 201.050023957486 BP Diastolic BP Location Tested BP Systolic BP Type 66 108 sitting Fetus Heart Rate Present A 145 Present Fetus Movement A Yes Comments doing well, no new questions todaypassed sugar test last time Flowsheet Date 09/18/2019 Campo Score Blood Edema Fundus Height Fundus Units Glucose Ketones Leukocytes Nitrite Labor Signs Protein Cervic Dilation Cervic Effacement Cervic Station none 30 cm Type Weight in lbs Pre/Post Dialysis Refused With clothes 194.796199457348 BP Diastolic BP Location Tested BP Systolic BP Type 84 126 standing Fetus Heart Rate Present A 141 Present Fetus Movement A Yes Comments Almost 32 weeks, doing well. Some vag DC ; will do STD testing. Flowsheet Date 10/05/2019 Campo Score Blood Edema Fundus Height Fundus Units Glucose Ketones Leukocytes Nitrite Labor Signs Protein Cervic Dilation Cervic Effacement Cervic Station none 33 cm Type Weight in lbs Pre/Post Dialysis Refused With clothes 193.25397280413 BP Diastolic BP Location Tested BP Systolic BP Type 76 104 sitting Fetus Heart Rate Present A 148 Present Fetus Movement A Yes Comments doing OKsome pelvic pressure good FM, labor instructionsGBS today, valtrex RX given as well. declined TDAP Flowsheet Date 10/19/2019 Campo Score Blood Edema Fundus Height Fundus Units Glucose Ketones Leukocytes Nitrite Labor Signs Protein Cervic Dilation Cervic Effacement Cervic Station Type Weight in lbs Pre/Post Dialysis Refused With clothes 189.127797134003 BP Diastolic BP Location Tested BP Systolic BP Type 85 126 sitting Fetus Heart Rate Present Fetus Movement Comments Menstrual History Last Menstrual Date Menses Monthly On Bcp Conception Prior Menses Frequency Hcg Plus Date Menarche Onset Age 0402/07/2019 Delivery Information Delivery Date Delivery Type Labor Anesthesia Weeks Gestation Incision Type Labor Labor Length Hrs Delivered By Post Complications Tubal Sterilization Discharge Date Comments 9 Sponta neous General 35.[address] e true Dr. Brayden gonsalez 10/14/2019 Discharge Information Feeding Method Contraceptive Method Maternal HG B and HCT Levels Bottle Ob Episode Information Episode Created Date Number of Fetuses Patient Bloodtype Patient rh Status Prepregnancy Weight lbs Domestic Partner Domestic Partner Phone Father Name Bulb Filler Status 05/10/20 19 1 CLOSED Fetus Data First Name Last Name Admitted to NICU Weight (g) Sex Living Outcome Pediatric Complications Fetus ID Race Codes Race Delivery Type , Spontane ous [id number] Rustam Calculation Initial Rustam Date Initial Exam Date Initial Exam Provider Initial Ultrasound Date Last Menstrual Period Date Ultra Sound Weeks Gestation 0 Eighteen To Twenty Week Rustam Update Ultra Sound Date Fundal Height At Umbil Quickening Date Ultra Sound Latest Weeks Gestation Final Rustam Confirmed By Final Rustam Confirmed Date Final Rustam Date Ultra Sound Latest Days Gestation 0 0 Menstrual History Last Menstrual Date Menses Monthly On Bcp Conception Prior Menses Frequency Hcg Plus Date Menarche Onset Age Delivery Information Delivery Date Delivery Type Labor Anesthesia Weeks Gestation Incision Type Labor Labor Length Hrs Delivered By Post Complications Tubal Sterilization Discharge Date Comments 5 Discharge Information Feeding Method Contraceptive Method Maternal HG B and HCT Levels Ob Episode Information Episode Created Date Number of Fetuses Patient Bloodtype Patient rh Status Prepregnancy Weight lbs Domestic Partner Domestic Partner Phone Father Name Bulb Filler Status 05/10/20 19 1 CLOSED Fetus Data First Name Last Name Admitted to NICU Weight (g) Sex Living Outcome Pediatric Complications Fetus ID Race Codes Race Delivery Type 3401.94 M Full Term 29147 Vaginal Rustam Calculation Initial Rustam Date Initial Exam Date Initial Exam Provider Initial Ultrasound Date Last Menstrual Period Date Ultra Sound Weeks Gestation 0 Eighteen To Twenty Week Rustam Update Ultra Sound Date Fundal Height At Umbil Quickening Date Ultra Sound Latest Weeks Gestation Final Rustam Confirmed By Final Rustam Confirmed Date Final Rustam Date Ultra Sound Latest Days Gestation 0 0 Menstrual History Last Menstrual Date Menses Monthly On Bcp Conception Prior Menses Frequency Hcg Plus Date Menarche Onset Age Delivery Information Delivery Date Delivery Type Labor Anesthesia Weeks Gestation Incision Type Labor Labor Length Hrs Delivered By Post Complications Tubal Sterilization Discharge Date Comments [address] Cyr Discharge Information Feeding Method Contraceptive Method Maternal HG B and HCT Levels
--- NOTE | 2025-01-10 19:05 | OBADM ---
This patient, Gela Hu, admitted to the OB room OB Post 115 for observation. Patient/family oriented to hospital policies and general routines including ID bracelet, bed and alarms, visiting hours, pain management, procedures, bathroom and other care routines, personal items, smoking policy, room service/diet, and visiting hours. Patient/Family are encouraged to report perceived risks to care and to ask questions if they do not understand what they are told or what they should do.
[2025-01-10 19:44] LABS: Add Urine Microscopic? YES; Appearance Urine Clear (Clear); Bacteria Urine Rare /hpf; Bilirubin Urine Negative (Negative); Blood Urine Negative (Negative); Color Urine Yellow (Yellow); Glucose Urine UA Negative (Negative); Ketones Urine Negative (Negative); Leukocyte Esterase Ur 2+ LEU/UL (Negative); Nitrate Urine Negative (Negative); Non Pathogenic Casts 0-2; Protein Urine Negative (Negative); Specific Grav Ur 1.011 (1.001-1.035); Squamous Epithelial Cell Urine Occasional /hpf (Few); Urobilinogen Urine 0.2 mg/dL (<2.0)
--- NOTE | 2025-01-10 20:03 | PC.NURSE ---
Called Dr. Fritz, update on pt, lightheadedness, cramping 8 out of 10 pain, dopple heart tones 135, urinalysis, and blood pressure. Orders received to perform cervical exam and discharge pt if not dilated with instructions to follow up with provider, keep next scheduled appointment, and when to return to the unit.
--- NOTE | 2025-01-10 20:05 | PC.NURSE ---
RN at bedside, discussing plan of care, pt denies cervical exam at this time.
--- NOTE | 2025-01-10 20:10 | PC.NURSE ---
Called Dr. Fritz, update on pt denying cervical exam. Orders received to discharge pt with instructions to follow up with provider, keep next scheduled appointment, and when to return to the unit.
--- NOTE | 2025-01-10 20:25 | PC.NURSE ---
Pt discharged with instructions to follow up with provider, keep next scheduled appointment, and when to return to the unit, pt verbalizes understanding.
--- NOTE | 2025-01-15 12:32 | P.PNOB_ITS ---
OB - Triage/Final Diagnosis Visit Information Reason for evaluation: other (lightheaded and cramping) Comments/Additional reasons for admission: I have assessed the risk for this patient, Gela Hu, and determined that she would benefit from observation care. Evaluation Laboratory results: Laboratory Tests 01/10/25 18:59 Urine Color Yellow Urine Appearance Clear Urine pH 6.0 Ur Specific [place] 1.011 Urine Protein Negative Urine Glucose (UA) Negative Urine Ketones Negative Ur Blood (Man) Negative Urine Nitrate Negative Urine Bilirubin Negative Urine Urobilinogen 0.2 Leukocyte Esterase Rfl 2+ H Urine RBC 3-5 H Urine WBC 6-10 H Ur Squamous Epith Cells Occasional Urine Bacteria Rare Urine Casts 0-2
== END 2025-01-10 20:25 | disposition home or self-care (01) ==
PROVIDERS: Admitting Provider Obstetrics & Gynecology Gynecology; PCP Physician Assistant; Visit Provider Obstetrics & Gynecology Gynecology
DX: O26.892 Other specified pregnancy related conditions, second trimester (principal); R42 Dizziness and giddiness; R25.2 Cramp and spasm; Z3A.22 22 weeks gestation of pregnancy
CPT/HCPCS: 81001; 87086; G0378; G0379